=== PATIENT | male | born 1970 | race Caucasian/White ===

== ENCOUNTER 2024-01-04 08:20 | Outpatient (OUT) | payer BC, SELFPAY ==
[2024-01-04 08:43] LABS: Basophils Percent Auto 0.8 % (0.2-2.0); Eosinophils Absolute Auto 0.2 10^3/uL (0.0-0.7); Eosinophils Percent Auto 3.1 % (0.9-7.0); Hematocrit 48.9 % (42.0-54.0); Hemoglobin 15.9 g/dL (14.0-18.0); Immature Granulocytes Abs Auto 0.01 10^3/uL (0.00-0.03); Immature Granulocytes Pct Auto 0.2 % (0.0-0.5); Lymphocytes Absolute Auto 1.9 10^3/uL (1.2-3.8); Lymphocytes Percent Auto 38.4 % (20.5-60.0); Mean Corpuscular HGB Conc 32.5 g/dL (29.9-35.2); Mean Corpuscular Volume 89.2 fL (80.0-94.0); Mean Platelet Volume 9.7 fL (9.5-13.5); Monocytes Absolute Auto 0.5 10^3/uL (0.3-0.8); Monocytes Percent Auto 9.8 % (1.7-12.0); Neutrophils Absolute Auto 2.3 10^3/uL (1.4-6.5); Neutrophils Percent Auto 47.7 % (43.0-75.0); Platelet Count 205 10^3/uL (150-450); Red Blood Count 5.48 10^6/uL (4.70-6.10); White Blood Count 4.9 10^3/uL (4.0-11.0)
[2024-01-04 08:48] LABS: Bilirubin Urine NEGATIVE (NEGATIVE); Blood Urine NEGATIVE (NEGATIVE); Clarity Urine CLEAR (CLEAR); Color Urine YELLOW (YELLOW); Glucose Urine UA NEGATIVE (NEGATIVE); Ketones Urine NEGATIVE (NEGATIVE); Leukocyte Esterase Urine NEGATIVE (NEGATIVE); Nitrite Urine NEGATIVE (NEGATIVE); Protein Urine NEGATIVE (NEG/TRACE); Specific Gravity Urine >=1.030 (1.005-1.025); Urobilinogen Urine 0.2 EU/dL (0.2-1.0); pH Urine 5.5 (5.0-9.0)
[2024-01-04 08:51] LABS: Microalbum Creatinine Ratio Ur 6.9 mg/g (0.0-29.9); Microalbumin Urine Random <1.3 mg/dL (<=30.0)
[2024-01-04 08:53] LABS: Urine Microscopic Indicated NO
[2024-01-04 09:09] LABS: Estimated Average Glucose 108 mg/dL; Glycohemoglobin A1C 5.4 % (4.5-6.2)
[2024-01-04 11:14] LABS: Alanine Aminotransferase 47 U/L (16-63); Albumin Globulin Ratio 1.1; Albumin Level 3.8 g/dL (3.4-5.0); Alkaline Phosphatase 73 U/L (46-116); Aspartate Amino Transferase 29 U/L (15-37); BUN Creatinine Ratio 12.5; Bilirubin Total 0.5 mg/dL (0.2-1.0); Calcium 8.8 mg/dL (8.5-10.1); Carbon Dioxide 27.3 mmol/L (21.0-32.0); Chloride 104 mmol/L (98-107); Chol HDL Ratio 5.8; Cholesterol 146 mg/dL (<=200); Estimated GFR (African America >60 (>=60); Estimated GFR (Non-African Ame >60 (>=60); Globulin 3.6 g/dL; Glucose 122 mg/dL (74-106); HDL Cholesterol 25 mg/dL (40-60); Potassium 4.3 mmol/L (3.5-5.1); Sodium 141 mmol/L (136-145); Total Protein 7.4 g/dL (6.4-8.2)
[2024-01-04 12:26] LABS: Triglycerides 169 mg/dL (<=150); VLDL CHOLESTEROL 33.8 mg/dL
== END 2024-01-04 08:21 | disposition home or self-care (01) ==
LOC: LAB 08:24
PROVIDERS: PCP Nurse Practitioner; Visit Provider Nurse Practitioner
DX: Z12.5 Encounter for screening for malignant neoplasm of prostate (principal); Z78.9 Other specified health status
CPT/HCPCS: 36415; 80053; 80061; 81003; 82043; 82570; 83036; 84153; 85025

== ENCOUNTER 2024-11-07 08:59 | Outpatient (OUT) | payer BC, SELFPAY ==
--- NOTE | 2024-11-07 09:07 | US_ITS ---
The [address] [address] Patient Name: JEN LOPEZ MRN: [id number] date: 1970 Sex: M Assigned Patient Location: Current Patient Location: Accession/Order Number: [id number] Exam Date: 11/07/2024 09:15 Report Date: 11/11/2024 11:43 At the request of: BASILIO CRAMER Procedure: US scrotum EXAMINATION: US scrotum HISTORY: SCROTAL MASS N50.89 COMPARISON: No relevant comparison available. TECHNIQUE: High-resolution sonographic imaging of the scrotum and contents was performed. FINDINGS: RIGHT TESTICLE: [Homogeneous echotexture. No visible mass. Color Doppler flow is present. Spectral Doppler demonstrates normal arterial waveform and flow, 11/5 cm/s (PSV/EDV), and normal venous wave flow averaging 2 cm/s. EPIDIDYMIS: Normal size and echogenicity. OTHER: Small varicocele. LEFT TESTICLE: Homogeneous echotexture. No visible mass. Color Doppler flow is present. Spectral Doppler demonstrates arterial waveform and flow, 4/2 cm/s (PSV/EDV), and normal venous flow averaging 2 cm/s EPIDIDYMIS: Normal size and echogenicity. OTHER: Several cystic structures within left hemiscrotum adjacent the epididymis, largest is 4.1 x 3.8 x 3.7 cm. Small amount of internal debris. Small hydrocele and mild varicocele. US/US scrotum IMPRESSION: 1. Patient's palpable lump within left hemiscrotum corresponds to several adjacent cystic structures favoring spermatoceles rather than loculated hydroceles. Electronically authenticated by: RAYMUNDO MASTERS Date: 11/11/2024 11:43
== END 2024-11-07 09:00 | disposition home or self-care (01) ==
PROVIDERS: PCP Nurse Practitioner; Visit Provider Nurse Practitioner
DX: N50.89 Other specified disorders of the male genital organs (principal)
CPT/HCPCS: 76870

== ENCOUNTER 2025-05-29 08:27 | Outpatient (OUT) | payer BC, SELFPAY ==
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
--- OUTSIDE RECORDS SUMMARY | 2025-05-29 08:31 | XMS_ITS | Encounter Summary ---
Author Organization [facility] Address [address] [place] [address] Care Team Providers Care Edge Baster Name Role Phone Thierno Del Toro MD Primary Care Provider [phone] Darlyn Paul NP Unavailable [phone] Thierno Del Toro MD Primary Care Provider [phone] Darlyn Paul NP Unavailable [phone] Darlyn Paul NP Unavailable [phone] Reason for Visit * Reason Comments Med Refill Encounter Details Date Type Department Care Team (Late st Contact Info) Description 11/18/2023 Refill [facility] [address] [place] [address] Darlyn Paul NP [address] [place] [phone] Social History Tobacco Use Types Packs/Day Years Used Date Smoking Tobacco: Never Assessed Sex and Gender Information Value Date Recorded Sex Assigned at Not on file Legal Sex Male 10:53 PM EDT Gender Identity Not on file Sexual Orientation Not on file documented as of this encounter Miscellaneous Notes * Telephone Encounter - Darlyn Paul NP - 11/18/2023 12:28 PM EST Needs an appt documented in this encounter Plan of Treatment Upcoming Encounters Date Type Department Care Team (Late st Contact Info) Description 09/23/2025 9:20 AM EST Office Visit [facility] [address] [place] [address] Darlyn Paul NP [address] [place] [phone] documented as of this encounter Visit Diagnoses Not on filedocumented in this encounter Care Teams Edge Baster Relationship Specialty Start Date End Date Thierno Del Toro MD PCP - General Family Medicine 04/19/23 01/01/24 Thierno Del Toro MD [address] [place] [phone] PCP - General Family Medicine 01/02/24 Darlyn Paul NP [address] [place] [phone] [facility] Darlyn Paul NP [address] [place] [phone] Referring Physician Nurse Practitioner 04/19/23 Darlyn Paul NP [address] [place] [address] Nurse Practitioner Family Medicine 01/02/24 documented as of this encounter
--- OUTSIDE RECORDS SUMMARY | 2025-05-29 08:31 | XMS_ITS | Clinical Summary ---
Author Organization [facility] Address [address] [place] [address] Care Team Providers Care Private Watchman Name Role Phone Darlyn Paul CONSULTING NURSE Unavailable [phone] Thierno Del Toro MD Primary Care Provider [phone] Darlyn Paul CONSULTING NURSE Unavailable [phone] Allergies No known active allergies Medications MAGNESIUM GLYCINATE PO Take 240 mg by mouth in the morning and 240 mg before bedtime. Active lisinopril 20 MG tabletIndications:P rimary hypertension Take 1 tablet (20 mg) by mouth Daily 90 tablet 1 5 06/22/20 25 Active rosuvastatin (Crestor) 20 MG tabletIndications:M ixed hyperlipidemia Take 1 tablet (20 mg) by mouth at bedtime 90 tablet 1 5 06/22/20 25 Active Active Problems Problem Noted Date Diagnosed Date Colon cancer screening 03/24/2025 Assessment & Plan (03/24/2025 9:28 AM EDT): Colon cancer screening options were discussed with patient, as well as why colon cancer screening is indicated. Options are Colonoscopy: direct visualization, every 10 years (unless indicated more frequently), risks and benefits were discussed Cologuard: every 3 years, risks and benefits were discussed , contraindications were discussed (family hx of colon cancer, colon polyps) Patient has elected to: cologuard Adult wellness visit 03/24/2025 Assessment & Plan (03/24/2025 9:28 AM EDT): Reviewed Ht/Wt/BMI Recommend eye exam yearly Recommend dental exams twice a year Balance work/leisure activities Exercises is recommended most days of the week (appropriate as chronic conditions allow) Follow up yearly and prn Scrotal mass 10/21/2024 Assessment & Plan (10/21/2024 7:09 PM EST): Differentials: hernia, varicocele, hydrocele, or testicular mass Check US scrotom and send to urology pending results Class 1 obesity due to exces s calories without serious comorbidity in adult 09/23/2024 Assessment & Plan (03/24/2025 5:46 AM EDT): Discussed with patient their BMI (actual, verses recommended). We have also discussed lifestyle modifications: attempts to perform physical activity as chronic conditions allow, also to monitor dietary intake: increasing protein/fruits/veggies and lowering carb intake (unless contraindicated). Limit sodas, juices, and sugary drinks. Assessment & Plan (10/21/2024 7:11 AM EST): Discussed with patient their BMI (actual, verses recommended). We have also discussed lifestyle modifications: attempts to perform physical activity as chronic conditions allow, also to monitor dietary intake: increasing protein/fruits/veggies and lowering carb intake (unless contraindicated). Limit sodas, juices, and sugary drinks. Also discussed oral medications that can be utilized for weight loss, as well as surgical options for weight loss. Assessment & Plan (09/23/2024 8:52 AM EST): Discussed with patient their BMI (actual, verses recommended). We have also discussed lifestyle modifications: attempts to perform physical activity as chronic conditions allow, also to monitor dietary intake: increasing protein/fruits/veggies and lowering carb intake (unless contraindicated). Limit sodas, juices, and sugary drinks. Also discussed oral medications that can be utilized for weight loss, as well as surgical options for weight loss. Has gained 9 pounds since 12/2023 Needs flu shot 09/23/2024 Assessment & Plan (09/23/2024 9:05 AM EST): declines Primary hypertension 01/02/2024 Assessment & Plan (03/24/2025 5:46 AM EDT): Please check blood pressure daily and record DASH diet Limit caffeine Take medication as directed Contact office if chest pain, pressure, dizziness, shortness of breath, swelling legs Recommend slow position changes Current med: lisinopril Assessment & Plan (09/23/2024 6:33 AM EST): Please check blood pressure daily and record DASH diet Limit caffeine Take medication as directed Contact office if chest pain, pressure, dizziness, shortness of breath, swelling legs Recommend slow position changes Current med: lisinopril Assessment & Plan (01/02/2024 9:27 AM EDT): Out of meds for a week Restart, no need to change dose Meds refilled Check labs Fu in 6 months Mixed hyperlipidemia 01/02/2024 Assessment & Plan (03/24/2025 5:46 AM EDT): Current medication crestor Check labs yearly and prn dose changes Assessment & Plan (09/23/2024 6:34 AM EST): Current medication crestor Check labs yearly and prn dose changes Assessment & Plan (01/02/2024 9:28 AM EDT): Continue statin, check labs Participant in health and wellness plan 01/02/20 Assessment & Plan (03/24/2025 9:28 AM EDT): Labs ordered Prostate cancer screening 01/02/2024 Overview (01/09/2024): 07/2018 1.44 01/08/24 2.50 Resolved Problems Problem Noted Date Diagnosed Date Resolved Date Elevated glucose level 01/02/202409/23 Assessment & Plan (01/02/2024 9:28 AM EDT): Hx of sl elevation glucose last year, never had A1c test No acute s/s DM, does have grandparent with diabetes Will check A1c test Encounters Date Type Department Care Team Description 03/24/2025 9:00 AM EDT Office Visit [facility] [address] [place] [address] Darlyn Paul NP Adult wellness visit (Primary Dx); Primary hypertension ; Class 1 obesity due to excess calories without serious comorbidity with body mass index (BMI) of 30.0 to 30.9 in adult; Mixed hyperlipidemia ; Participant in health and wellness plan; Colon cancer screening 03/24/2025 Bamboo flowsheet [facility] [address] [place] [address] Darlyn Paul NP 03/23/2025 Travel from Last 3 Months Social History Tobacco Use Types Packs/Day Years Used Date Smoking Tobacco: Former Cigarettes Q uit: 1999 Smokeless Tobacco: Never Tobacco Cessation:Counseling Given: Not Answered Alcohol Use Standard Drinks/Week Comments Not Currently 0 (1 standard drink = 0.6 oz pur e alcohol) caffine: coffee 1 daily B1300 Health Literacy Answer Date Recor ded How often do you need to hav e someone help you when you read instructions, pamphlets, or other written material from your doctor or pharmacy? Never 09/22/2024 Social Connection and Isolat ion Panel [NHANES] Answer Date Recorded In a typical week, how many times do you talk on the phone with family, friends, or neighbors? More than three times a week 09/22/2024 How often do you get togethe r with friends or relatives? Once a week 09/22/2024 How often do you attend chur ch or gnosticism services? 1 to 4 times per year 09/22/2024 Do you belong to any clubs o r organizations such as nondenominational groups, unions, fraternal or athletic groups, or school groups? Yes 09/22/2024 How often do you attend meet ings of the clubs or organizations you belong to? Never 09/22/2024 Are you , , di vorced, , never , or living with a partner? 09/22/2024 AUDIT-C Answer Date Recorded Q1: How often do you have a drink containing alcohol? Monthly or less 09/22/2024 Q2: How many drinks containi ng alcohol do you have on a typical day when you are drinking? Patient does not drink Q3: How often do you have si x or more drinks on one occasion? Never 09/22/2024 Overall Financial Resource Strain (CARDIA) Answe r Date Recorded How hard is it for you to pa y for the very basics like food, housing, medical care, and heating? Not hard at all 09/22/2024 [facility] - Occupational Stress Questionnaire Answer Date Recorded Do you feel stress - tense, restless, nervous, or anxious, or unable to sleep at night because your mind is troubled all the time - these days? Not at all 09/22/2024 Exercise Vital Sign Answer Date Recorde d On average, how many days pe r week do you engage in moderate to strenuous exercise (like a brisk walk)? 3 days 09/22/2024 On average, how many minutes do you engage in exercise at this level? 10 min 09/22/2024 Hunger Vital Sign Answer Date Recorded Within the past 12 months, y ou worried that your food would run out before you got the money to buy more. Never true 09/22/20 24 Within the past 12 months, t he food you bought just didn't last and you didn't have money to get more. Never true 09/22/2024 PRAPARE - Transportation Answer Date Re corded In the past 12 months, has l ack of transportation kept you from medical appointments or from getting medications? No 09/06 In the past 12 months, has l ack of transportation kept you from meetings, work, or from getting things needed for daily living? No 09/22/2024 Housing Stability Vital Sign Answer Sea e Recorded In the last 12 months, was t here a time when you were not able to pay the mortgage or rent on time? No 09/22/2024 In the past 12 months, how m any times have you moved where you were living? 0 09/22/2024 At any time in the past 12 [facility], were you homeless or living in a [facility] (including now)? No 09/22/2024 Sex and Gender Information Value Date Recorded Sex Assigned at Not on file Legal Sex Male 10:53 PM EDT Gender Identity Not on file Sexual Orientation Not on file Last Filed Vital Signs Vital Sign Reading Time Taken Comments Blood Pressure 118/78 03/24/2025 8:59 AM EDT Pulse 72 03/24/2025 8:59 AM EDT Temperature 36.8 C (98.3 F) 03/24/2025 8:59 AM EDT Respiratory Rate 18 03/24/2025 8:59 AM EDT Oxygen Saturation 97% 03/24/2025 8:59 AM EDT Inhaled Oxygen Concentration - - Weight 101 kg (222 lb 3.2 oz) 03/24/2025 8:59 AM EDT Height 175.3 cm (5' 9 ) 10/21/2024 6:25 PM EST Body Mass Index 32.81 10/21/2024 6:25 PM EST Plan of Treatment Upcoming Encounters Date Type Department Care Team (Late st Contact Info) Description 09/23/2025 9:20 AM EST Office Visit [facility] [address] [place] [address] Darlyn Paul, CONSULTING NURSE [address] [place] [phone] Health Maintenance Due Date Last Done Comments CT Colonography 1970 Colonoscopy 1971 FIT 1970 FOBT 1970 Sigmoidoscopy 1970 Colorectal Cancer Screening 10/09/2024 FIT-DNA 10/09/2024 10/09/2021 Influenza Vaccine Discontinued Insurance [employer] Care Teams Private Watchman Relationship Specialty Start Date End Date Thierno Del Toro MD [address] [place] [phone] PCP - General Family Medicine 01/02/24 Darlyn Paul NP [address] [place] [address] Referring Physician Nurse Practitioner 04/19/23 Darlyn Paul NP [address] [place] [address] Nurse Practitioner Family Medicine 01/02/24
--- OUTSIDE RECORDS SUMMARY | 2025-05-29 08:31 | XMS_ITS | CCD ---
Author Organization [facility] Care Team Providers Care Leather Toggler Name Role Phone MARQUEZ PAUL Admitting Unavailable MARQUEZ PAUL Attending Unavailable MARQUEZ PAUL Primary Care Unavailable MARQUEZ PAUL Consulting Unavailable Humberto COMPLIANCE REVIEW SPECIALIST, Darlyn Unavailable Thierno Del Toro MD Primary Care Provider Humberto COMPLIANCE REVIEW SPECIALIST, Darlyn Unavailable Humberto COMPLIANCE REVIEW SPECIALIST, Darlyn Unavailable DARLYN PAUL Primary Care Physician Jayden BECK Attending Unavailable Jayden BECK Attending Unavailable Jayden BECK Attending Unavailable Jayden BECK Admitting Unavailable Jayden BECK Attending Unavailable Jayden BECK Admitting Unavailable Jayden Beck MD Attending Provider Darlyn Paul Primary Care Provider [phone] DARLYN PAUL Attending Unavailable DARLYN PAUL Attending Unavailable DARLYN PAUL Attending Unavailable Darlyn Paul Primary Care Unavailable Jayden Beck Attending Unavailable Jayden Beck Admitting Unavailable Allergies Allergy Classification Reported Allergen(s) Allergy Type Date of Onset Reaction(s) Facility (1 source) No Known Medication Allergies; Translations: [No Known Medication Allergies] Propensity to adverse reactions (disorder) [facility] Repository Medications Current Medications Medication Drug Class(es) Dates Sig (Normalized) Sig (Original) lisinopril 20 mg oral tablet (20 sources) Angiotensin Converting Enzyme Inhibitor Start: 01-09-2024 End: 09-16-2025 take 1 tablet by mouth once daily lisinopril 20 MG tablet Indications: Primary hypertension Take 1 tablet (20 mg) by mouth Daily 90 tablet 1 03/24/2025 06/22/2025 Active Magnesium glycinate (11 sources) take 240 mg by mouth in the morning MAGNESIUM GLYCINATE PO Take 240 mg by mouth in the morning and 240 mg before bedtime. Active rosuvastatin calcium 20 mg oral tablet (20 sources) HMG-CoA Reductase Inhibitor Start: 01-09-2024 End: 06-22-2025 take 1 tablet by mouth at bedtime rosuvastatin (Crestor) 20 MG tablet Indications: Mixed hyperlipidemia Take 1 tablet (20 mg) by mouth at bedtime 90 tablet 1 03/24/2025 06/22/2025 Active Problems Active Problems Problem Classification Problem Date Documented Date Episodic/Chronic Disorders of lipid metabolism (19 sources) Mixed hyperlipidemia; Translations: [Mixed hyperlipidemia] Onset: 01-02-2024 06-19-2024 Chronic Essential hypertension (19 sources) Essential hypertension; Translations: [Essential (primary) hypertension] Onset: 01-02-2024 06-19-2024 Chronic Other male genital disorders (1 source) Spermatocele 01-11-2025 Episodic Other nutritional; endocrine; and metabolic disorders (18 sources) Obesity caused by energy imbalance; Translations: [Class 1 obesity due to excess calories without serious comorbidity in adult] Onset: 09-23-2024 09-23-2024 Chronic Other screening for suspected conditions (not mental disorders or infectious disease) (19 sources) Patient encounter status; Translations: [Encounter for screening for malignant neoplasm of prostate] Onset: 01-02-2024 01-09-2024 Episodic Residual codes; unclassified (1 source) Other specified health status; Translations: [OTHER SPECIFIED HEALTH STATUS] Onset: 11-12-2022 Episodic Residual codes; unclassified (15 sources) Patient participation status; Translations: [Other specified health status] Onset: 01-02-2024 01-02-2024 Episodic Past or Other Problems Problem Classification Problem Date Documented Da te Episodic/Chronic Diabetes mellitus without complication (17 sources) Hyperglycemia, unspecified; Translations: [Increased glucose level] Onset: 11-10-2022 Resolved: 09-23-2024 Episodic Immunizations and screening for infectious disease (9 sources) Needs influenza immunization; Translations: [Encounter for immunization] Onset: 09-23-2024 09-23-2024 Episodic Other male genital disorders (12 sources) Scrotal mass; Translations: [Other specified disorders of the male genital organs] Onset: 10-21-2024 10-21-2024 Episodic Results Test Name Value Interpretation Reference Range Facility MR prostate wo/w conon 03-16 MR prostate wo/w con [facility] [place] [address] [place] [address] MRI Report Signed Patient: Jen Lopez MR#: [id number] : 1970 Acct:[id number] Age/Sex: 54 / M ADM Date: 03/15/25 Loc: MR Room: Type: [facility] Attending Dr: Jayden Beck MD Copies to: Jayden Beck MD Ordering Provider: Jayden Beck MD Date of Service: 03/15/25 MR/MR prostate wo/w con: r97.20 EXAMINATION: MR prostate wo/w con HISTORY: Elevated PSA COMPARISON: NONE TECHNIQUE: Multiparametric imaging of the prostate gland was performed with IV contrast. FINDINGS: Prostate Dimensions: 5.0 x 3.9 x 5.3 cm Prostate Volume: 54 mL Peripheral Zone: Heterogenous inT2 signal suggestive of prior prostatitis. No suspicious T2 or ADC map abnormality is identified to suggest prostate malignancy. Central/Transitional Zone: BPH changes. Seminal Vesicles: Unremarkable Neurovascular bundles: Unremarkable. Lymphadenopathy: No evidence of lymphadenopathy. Bladder: No focal lesion. Bowel: The visualized bowel is without acute abnormality. Peritoneal Cavity: No free fluid. Partially visualized right-sided fat filled inguinal hernia. Bones: No suspicious bony lesion. MR/MR prostate wo/w con IMPRESSION: No MRI evidence of clinically significant prostate cancer. BPH changes. Impression dictated by: Festus Mendoza Jr., D.O. 03/16/2025 9:36 AM Dictation Location: [place] [address] Transcribed By: [facility] 03/16/2536 Dictated By: Festus Mendoza Jr, DO 03/16/25 0932 Signed By: 03/16/2536 Normal [facility] Ambulatory Visit Summaryon 0 01-11-2025 Ambulatory Visit Summary Ambulatory Visit Summary JEN LOPEZ :1970 Visit Date:01/11/2025 Ambulatory Visit Instructions Your Diagnosis Spermatocele Elevated PSA Your Care Team Attending Physician - Jayden BECK MD Primary Care Physician - DARLYN PAUL CNP This Is Your Medications List Contact prescribing physician if questions or concerns lisinopril (lisinopril 20 mg Tab) rosuvastatin (rosuvastatin 20 mg Tab) Procedures Performed Vasectomy. Discharge Vitals Temperature (Temporal Artery) 37 ???C Heart Rate (Peripheral) 88 Respiratory Rate 16 Blood Pressure 138/81 Height 174 cm Height 69 in Weight 100 kg Weight 220.462 lb BMI 33.03 What to do next Scheduled Follow-Up Appointments Saturday2025 9:45 AM EDT With: Jayden BECK MD Where: [facility] [place] [address] [place] [address] You Need to Schedule the Following Appointments Follow Up with Jayden BECK MD, URL When: Comments: 1 yr w/ PSA Where: [facility] [address], [place] [address]- [phone] You Need to Complete the Following PSA Total, Blood, Routine collect, 01/11/25, Order for future visit, Lab Collect, Elevated PSA, Print Label By Order Location Medications What How Much When Instructions Unchanged lisinopril (lisinopril 20 mg Tab) 1 Tablets Contact prescribing physician if questions or concerns Unchanged rosuvastatin (rosuvastatin 20 mg Tab) 1 Tablets Contact prescribing physician if questions or concerns Allergies No Known Medication Allergies Problems Ongoing - Any problem that you are currently receiving treatment for. Elevated PSA Spermatocele Patient Survey You may receive a survey via text or e-mail asking about your office visit. Please share your experience with us by completing your survey. We appreciate your feedback and thank you for choosing us for your care. Education Materials Testicular Self-Exam A self-examination of your testicles (testicular self-exam) involves looking at and feeling your testicles for abnormal lumps or swelling. Several things can cause swelling, lumps, or pain in your testicles, including: ??? Injuries. ??? Inflammation. ??? Infection. ??? Buildup of fluids around the testicle (hydrocele). ??? Twisted testicles (testicular torsion). ??? Testicular cancer. You may be at risk for this if you have: ? A testicle that has not descended. ? Previously had testicular cancer. ? A family history of testicular cancer. General tips ??? It is easiest to do a self-exam during or after a warm bath or shower. Testicles are harder to examine when you are cold because the muscles attached to the testicles retract and pull them up higher or into the abdomen. ??? A normal testicle is egg-shaped and feels firm. It is smooth and not tender. ??? It is normal to feel a firm, spaghetti-like cord at the back of your testicle. This is the spermatic cord. ??? Do a self-exam once a month. How to do a testicular self-exam 1. Stand and hold your penis away from your body. 2. Look at each testicle to check for changes in appearance, such as swelling or changes in size or shape. 3. Roll each testicle between your thumb and forefinger, feeling the entire testicle. Feel for: ??? Lumps. ??? Swelling. ??? Discomfort. 4. Check for swelling or tender bumps in the groin area. Your groin is where your lower belly (abdomen) meets your upper thighs. Contact a health care provider if: ??? You find a bump or lump. This may be a small, hard bump that is the size of a pea. ??? You have swelling, pain, or soreness in your testicle area. ??? You see or feel any other changes in your testicles. This information is not intended to replace advice given to you by your health care provider. Make sure you discuss any questions you have with your health care provider. Document Revised: 07/08/2023 Document Reviewed: 07/08/2023 Elsevier Patient Education ??? 2023 [employer] Spermatocele A spermatocele is a fluid-filled sac (cyst) inside the sac that holds the testicles (scrotum). This type of cyst often forms in the epididymis. The epididymis is a coiled tube at the top of each testicle, and this tube is where sperm are stored. The cyst sometimes forms along a tube called the vas deferens, which is a tube that carries sperm away from the epididymis. Spermatoceles are usually painless. Most cysts are small, but they can grow larger. Spermatoceles are not cancerous (are benign). What are the causes? The cause of this condition is not known. However, this condition usually results from a blockage in one of the many small tubes (tubules) that carry sperm from your testicle to your vas deferens. What are the signs or symptoms? In most cases, small (more content not included)... Normal [facility] Ambulatory Visit Summary Ambulatory Visit Summary JEN LOPEZ :1970 Visit Date:01/11/2025 Ambulatory Visit Instructions Your Diagnosis Spermatocele Elevated PSA Your Care Team Attending Physician - RHONDA PEDRO, Jayden Matos Primary Care Physician - DARLYN PAUL CNP This Is Your Medications List Contact prescribing physician if questions or concerns lisinopril (lisinopril 20 mg Tab) rosuvastatin (rosuvastatin 20 mg Tab) Procedures Performed Vasectomy. Discharge Vitals Temperature (Temporal Artery) 37 ???C Heart Rate (Peripheral) 88 Respiratory Rate 16 Blood Pressure 138/81 Height 174 cm Height 69 in Weight 100 kg Weight 220.462 lb BMI 33.03 What to do next You Need to Schedule the Following Appointments Follow Up with RHONDA PEDRO, Jayden Matso, URL When: Comments: 1 yr w/ PSA Where: [facility] [address] [place] [address]- [phone] You Need to Complete the Following PSA Total, Blood, Routine collect, 01/11/25, Order for future visit, Lab Collect, Elevated PSA, Print Label By Order Location Medications What How Much When Instructions Unchanged lisinopril (lisinopril 20 mg Tab) 1 Tablets Contact prescribing physician if questions or concerns Unchanged rosuvastatin (rosuvastatin 20 mg Tab) 1 Tablets Contact prescribing physician if questions or concerns Allergies No Known Medication Allergies Problems Ongoing - Any problem that you are currently receiving treatment for. Elevated PSA Spermatocele Patient Survey You may receive a survey via text or e-mail asking about your office visit. Please share your experience with us by completing your survey. We appreciate your feedback and thank you for choosing us for your care. Education Materials Testicular Self-Exam A self-examination of your testicles (testicular self-exam) involves looking at and feeling your testicles for abnormal lumps or swelling. Several things can cause swelling, lumps, or pain in your testicles, including: ??? Injuries. ??? Inflammation. ??? Infection. ??? Buildup of fluids around the testicle (hydrocele). ??? Twisted testicles (testicular torsion). ??? Testicular cancer. You may be at risk for this if you have: ? A testicle that has not descended. ? Previously had testicular cancer. ? A family history of testicular cancer. General tips ??? It is easiest to do a self-exam during or after a warm bath or shower. Testicles are harder to examine when you are cold because the muscles attached to the testicles retract and pull them up higher or into the abdomen. ??? A normal testicle is egg-shaped and feels firm. It is smooth and not tender. ??? It is normal to feel a firm, spaghetti-like cord at the back of your testicle. This is the spermatic cord. ??? Do a self-exam once a month. How to do a testicular self-exam 1. Stand and hold your penis away from your body. 2. Look at each testicle to check for changes in appearance, such as swelling or changes in size or shape. 3. Roll each testicle between your thumb and forefinger, feeling the entire testicle. Feel for: ??? Lumps. ??? Swelling. ??? Discomfort. 4. Check for swelling or tender bumps in the groin area. Your groin is where your lower belly (abdomen) meets your upper thighs. Contact a health care provider if: ??? You find a bump or lump. This may be a small, hard bump that is the size of a pea. ??? You have swelling, pain, or soreness in your testicle area. ??? You see or feel any other changes in your testicles. This information is not intended to replace advice given to you by your health care provider. Make sure you discuss any questions you have with your health care provider. Document Revised: 07/08/2023 Document Reviewed: 07/08/2023 Elsevier Patient Education ??? 2023 [employer]. Spermatocele A spermatocele is a fluid-filled sac (cyst) inside the sac that holds the testicles (scrotum). This type of cyst often forms in the epididymis. The epididymis is a coiled tube at the top of each testicle, and this tube is where sperm are stored. The cyst sometimes forms along a tube called the vas deferens, which is a tube that carries sperm away from the epididymis. Spermatoceles are usually painless. Most cysts are small, but they can grow larger. Spermatoceles are not cancerous (are benign). What are the causes? The cause of this condition is not known. However, this condition usually results from a blockage in one of the many small tubes (tubules) that carry sperm from your testicle to your vas deferens. What are the signs or symptoms? In most cases, small cysts do not cause symptoms. However, symptoms sometimes occur. Symptoms of this condition include: ??? Dull pain. ??? A feeling of heaviness. ??? An enlarged scrotum, if your cyst is large. How is this diagnosed (more content not included)... Normal [facility] Ambulatory Visit Summary Ambulatory Visit Summary JEN LOPEZ :1970 Visit Date:01/11/2025 Ambulatory Visit Instructions Your Diagnosis Spermatocele Elevated PSA Your Care Team Attending Physician - Jayden BECK MD Primary Care Physician - DARLYN PAUL CNP This Is Your Medications List Contact prescribing physician if questions or concerns lisinopril (lisinopril 20 mg Tab) rosuvastatin (rosuvastatin 20 mg Tab) Procedures Performed Vasectomy. Discharge Vitals Temperature (Temporal Artery) 37 ???C Heart Rate (Peripheral) 88 Respiratory Rate 16 Blood Pressure 138/81 Height 174 cm Height 69 in Weight 100 kg Weight 220.462 lb BMI 33.03 What to do next You Need to Schedule the Following Appointments Follow Up with RHONDA PEDRO, Jayden Matos, RASHMI When: Comments: 1 yr w/ PSA Where: [facility] [address] , [place] [address]- [phone] You Need to Complete the Following PSA Total, Blood, Routine collect, 01/11/25, Order for future visit, Lab Collect, Elevated PSA, Print Label By Order Location Medications What How Much When Instructions Unchanged lisinopril (lisinopril 20 mg Tab) 1 Tablets Contact prescribing physician if questions or concerns Unchanged rosuvastatin (rosuvastatin 20 mg Tab) 1 Tablets Contact prescribing physician if questions or concerns Allergies No Known Medication Allergies Problems Ongoing - Any problem that you are currently receiving treatment for. Elevated PSA Spermatocele Patient Survey You may receive a survey via text or e-mail asking about your office visit. Please share your experience with us by completing your survey. We appreciate your feedback and thank you for choosing us for your care. Education Materials Testicular Self-Exam A self-examination of your testicles (testicular self-exam) involves looking at and feeling your testicles for abnormal lumps or swelling. Several things can cause swelling, lumps, or pain in your testicles, including: ??? Injuries. ??? Inflammation. ??? Infection. ??? Buildup of fluids around the testicle (hydrocele). ??? Twisted testicles (testicular torsion). ??? Testicular cancer. You may be at risk for this if you have: ? A testicle that has not descended. ? Previously had testicular cancer. ? A family history of testicular cancer. General tips ??? It is easiest to do a self-exam during or after a warm bath or shower. Testicles are harder to examine when you are cold because the muscles attached to the testicles retract and pull them up higher or into the abdomen. ??? A normal testicle is egg-shaped and feels firm. It is smooth and not tender. ??? It is normal to feel a firm, spaghetti-like cord at the back of your testicle. This is the spermatic cord. ??? Do a self-exam once a month. How to do a testicular self-exam 1. Stand and hold your penis away from your body. 2. Look at each testicle to check for changes in appearance, such as swelling or changes in size or shape. 3. Roll each testicle between your thumb and forefinger, feeling the entire testicle. Feel for: ??? Lumps. ??? Swelling. ??? Discomfort. 4. Check for swelling or tender bumps in the groin area. Your groin is where your lower belly (abdomen) meets your upper thighs. Contact a health care provider if: ??? You find a bump or lump. This may be a small, hard bump that is the size of a pea. ??? You have swelling, pain, or soreness in your testicle area. ??? You see or feel any other changes in your testicles. This information is not intended to replace advice given to you by your health care provider. Make sure you discuss any questions you have with your health care provider. Document Revised: 07/08/2023 Document Reviewed: 07/08/2023 [employer] Patient Education ??? 2023 [employer]. Spermatocele A spermatocele is a fluid-filled sac (cyst) inside the sac that holds the testicles (scrotum). This type of cyst often forms in the epididymis. The epididymis is a coiled tube at the top of each testicle, and this tube is where sperm are stored. The cyst sometimes forms along a tube called the vas deferens, which is a tube that carries sperm away from the epididymis. Spermatoceles are usually painless. Most cysts are small, but they can grow larger. Spermatoceles are not cancerous (are benign). What are the causes? The cause of this condition is not known. However, this condition usually results from a blockage in one of the many small tubes (tubules) that carry sperm from your testicle to your vas deferens. What are the signs or symptoms? In most cases, small cysts do not cause symptoms. However, symptoms sometimes occur. Symptoms of this condition include: ??? Dull pain. ??? A feeling of heaviness. ??? An enlarged scrotum, if your cyst is large. How is this diagnosed (more content not included)... Normal [facility] CHEMISTRYOrdered By: SYSTEM SYSTEM on 01-11-2025 Prostate specific Ag [Mass/Vol] 2.5 ng/mL Normal 0.1 - 3.5 ng/mL Remisol Chem Comment on above: Interpretive Data: T he concentration of PSA determined by different manufacturers can vary due to differences in assay methods and reagent specificity. Values obtained from different assay methods cannot be used interchangeably. The methodology used for this result was chemiluminescence using [employer]'s [employer] Hybritech PSA reagent. PSA Totalon 01-11-2025 Prostate specific Ag [Mass/Vol] 2.5 ng/mL Normal 0.1-3.5 [facility] Comment on above: Result Comment: The concentration of PSA determined by different manufacturers can vary due to differences in assay methods and reagent specificity. Values obtained from different assay methods cannot be used interchangeably. The methodology used for this result was chemiluminescence using [employer]'s [employer] Hybritech PSA reagent. Performed By: #### 1 [id number] #### [facility] [address] [place] [address] Urology Office/Clinic Noteon 01-11-2025 Urology Office/Clinic Note Urology Office/Clinic Note Chief Complaint scrotal mass HPI Staff New pt referred by Darlyn Paul NP for scrotal mass. PSA 01/04/24 - 2.5 Scrotal US 11/11/24 [facility]. Denies any urinary complaints at this time. Denies any visible blood at any time. No pain of any kind. Pt states he first noticed the mass shortly before his appointment with FALLON Paul. No pain, swelling, redness or heat to the area. States that the mass does not seem to more one sided than the other. Almost free floating. History of Present Illness Tests reviewed: reviewed UA, referral records I have reviewed the previous health record information and history for this patient from external providers. I have reviewed and verified the staff HPI to be accurate for this encounter. Review of Systems PHQ Score Initial Depression Screen Score: 0 SCORE ROS - Provider Constitutional: denies weight loss, denies hot flashes. Eyes: denies eye problems. Gastrointestinal: denies nausea, denies vomiting. Cardiovascular: denies chest pain or angina. Integumentary: no dryness Musculoskeletal: denies musculoskeletal symptoms. ENMT: denies otolaryngeal symptoms. Respiratory: no shortness of breath. Heme/Lymph: denies easy bleeding tendency, denies easy bruising tendency. Psychiatric: no confusion, no anxiety. Genitourinary: See HPI. Physical Exam Vitals & Measurements T: 37 ???C(Temporal Artery) HR: 88(Peripheral) RR: 16 BP: 138/81 HT: 174 cm HT: 69 in WT: 220.462 lb WT: 100 kg BMI: 33.03 General Appearance: alert, no distress, well nourished, well developed male. Head: normocephalic . Eyes: normal orbit and globe. ENMT: normal examination of external ears. Chest: Lungs CTA, respirations non labored. Cardiovascular: regular rate and rhythm. Abdomen: soft, non distended, no tenderness, no mass or organomegaly, no hernia. Genitourinary: normal scrotum, normal testes, normal urethra, abnormal epididymis with left spermatocele about the size of the testicle, normal vas deferens/spermatic cord. Flank Pain: none. Bladder: nonpalpable. Penis: normal shaft, normal glans. Lymph Nodes: unremarkable palpation of the cervical area. Skin: warm, dry, no bruising. Psychiatric: cooperative, affect appropriate for age, normal judgement, euthymic mood. Assessment/Plan Jen is a 54 yo male new pt referred by Dralyn Paul NP for scrotal mass. IPSS 2. 1. Spermatocele (N43.40: Spermatocele of epididymis, unspecified) Scrotal US 11/11/24 [facility] - Several cystic structures within L hemiscrotum protruding from the epididymis, largest 4.1 x 3.8 x 3.7 cm. Small amount of internal debris. Small hydrocele and mild varicocele. Shares he found a mass in his scrotum upon self-examination in the last few months. Denies pain to palpation. Reviewed imaging results. Advised pt no repair is required unless there is an increase in size and becomes more bothersome. -Cont regular self-exams 2. Elevated PSA (R97.20: Elevated prostate specific antigen [PSA]) PSA 01/04/24 - 2.5 Advised pt level is elevated for his age. Recommend repeating this now. -PSA to be drawn IO today. Will call pt w results. -F/u in 1 yr w/ PSA (pending today's results, may need sooner appt) Follow-up With When Contact Information RHONDA PEDRO, Jayden Matos, [facility] [address], [place] [address] [phone] Additional Instructions: 1 yr w/ PSA Patient Education Testicular Self-Exam Spermatocele I, Ling Card, personally scribed for Dr. Beck on 01/11/2025 11:12:18. . Documentation recorded by the scribe, Ling Card, accurately reflects the services(s) I performed and decisions made by me. Authenticated by Dr. Beck on 01/11/2025 11:16:03. Problem List/Past Medical History Ongoing Elevated PSA Spermatocele Historical No qualifying data Procedure/Surgical History Vasectomy. Medications lisinopril 20 mg Tab, 20 mg= 1 tab(s) rosuvastatin 20 mg Tab, 20 mg= 1 tab(s) Allergies No Known Medication Allergies Social History Alcohol Never., 01/08/2025 Substance Abuse Never., 01/08/2025 Tobacco Former smoker, quit more than 30 days ago, quit 24 years ago Tobacco Use:. Never Smokeless Tobacco Use:. Cigarettes, Household tobacco concerns: No. Yes, 01/11/2025 Family History High cholesterol: Father. Hypertension: Father. Lab Results Ambulatory Point of Care Results Bilirubin Urine Dipstick: Negative (01/11/25 10:20:00) Blood Urine Dipstick: Negative (01/11/25 10:20:00) Glucose Urine Dipstick: Trace 100 mg/dl (01/11/25 10:20:00) Ketones Urine Dipstick: Trace - 5 mg/dl (01/11/25 10:20:00) Leukocytes Urine Dipstick: Negative (01/11/25 10:20:00) Nitrite Urine Dipstick: Negative (01/11/25 10:20:00) Protein Urine Dipstick: Negative (01/11/25 10:20:00) Specific Jonancy Urine Dipstick: 1.025 (01/11/25 10:20:00) Urine Appearance Urine Dipstick: Clear (01/11/25 10:20:00) Urine (more content not included)... Normal [facility] Comment on above: Result Comment: Elec tronically Signed By: Jayden BECK MD\.br\Date and Time Signed: 01/11/25 11:16 EDT\.br\Electronically Co-Signed By: Ling Cardbr\Date and Time Co-Signed: 01/11/25 11:12 EDT US Scrotum and testicleon [address] [place] [address] Ultrasound Report Signed Patient: JEN LOPEZ MR#: [id number] : 1970 Acct:[id number] Age/Sex: 53 / M ADM Date: 11/07/24 Loc: US Attending Dr: Darlyn Paul NP Ordering Physician: Darlyn Paul NP Date of Service: 11/07/24 Procedure(s): US scrotum Accession Number(s): [id number] cc: Darlyn Paul NP [place] [id number] Patient Name: JEN LOPEZ MRN: [id number] date: 1970 Sex: M Assigned Patient Location: US Current Patient Location: Accession/Order Number: [id number] Exam Date: 11/07/2024 09:15 Report Date: 11/11/2024 11:43 At the request of: DARLYN PAUL Procedure: US scrotum EXAMINATION: US scrotum HISTORY: SCROTAL MASS N50.89 COMPARISON: No relevant comparison available. TECHNIQUE: High-resolution sonographic imaging of the scrotum and contents was performed. FINDINGS: RIGHT TESTICLE: [Homogeneous echotexture. No visible mass. Color Doppler flow is present. Spectral Doppler demonstrates normal arterial waveform and flow, 11/5 cm/s (PSV/EDV), and normal venous wave flow averaging 2 cm/s. EPIDIDYMIS: Normal size and echogenicity. OTHER: Small varicocele. LEFT TESTICLE: Homogeneous echotexture. No visible mass. Color Doppler flow is present. Spectral Doppler demonstrates arterial waveform and flow, 4/2 cm/s (PSV/EDV), and normal venous flow averaging 2 cm/s EPIDIDYMIS: Normal size and echogenicity. OTHER: Several cystic structures within left hemiscrotum adjacent the epididymis, largest is 4.1 x 3.8 x 3.7 cm. Small amount of internal debris. Small hydrocele and mild varicocele. US/US scrotum IMPRESSION: 1. Patient's palpable lump within left hemiscrotum corresponds to several adjacent cystic structures favoring spermatoceles rather than loculated hydroceles. Electronically authenticated by: ELLIOT BROWN Date: 11/11/2024 11:43 Dictated By: Elliot Brown M.D. Signed By: 11/11/24 1145 DD/ 1143 TD/TT: Mechanic Chief: [facility] Radiology, Radiologist, - 11/11/2024 [place] [address] Ultrasound Report Signed Patient: JEN LOPEZ MR#: [id number] : 1970 Acct:[id number] Age/Sex: 53 / M ADM Date: 11/07/24 Loc: US Attending Dr: Darlyn Paul NP Ordering Physician: Darlyn Paul NP Date of Service: 11/07/24 Procedure(s): US scrotum Accession Number(s): [id number] cc: Darlyn Paul NP [place] [id number] Patient Name: JEN LOPEZ MRN: [facility]:[id number] date: 1970 Sex: M Assigned Patient Location: US Current Patient Location: Accession/Order Number: [id number] Exam Date: 11/07/2024 09:15 Report Date: 11/11/2024 11:43 At the request of: DARLYN PAUL Procedure: US scrotum EXAMINATION: US scrotum HISTORY: SCROTAL MASS N50.89 COMPARISON: No relevant comparison available. TECHNIQUE: High-resolution sonographic imaging of the scrotum and contents was performed. FINDINGS: RIGHT TESTICLE: [Homogeneous echotexture. No visible mass. Color Doppler flow is present. Spectral Doppler demonstrates normal arterial waveform and flow, 11/5 cm/s (PSV/EDV), and normal venous wave flow averaging 2 cm/s. EPIDIDYMIS: Normal size and echogenicity. OTHER: Small varicocele. LEFT TESTICLE: Homogeneous echotexture. No visible mass. Color Doppler flow is present. Spectral Doppler demonstrates arterial waveform and flow, 4/2 cm/s (PSV/EDV), and normal venous flow averaging 2 cm/s EPIDIDYMIS: Normal size and echogenicity. OTHER: Several cystic structures within left hemiscrotum adjacent the epididymis, largest is 4.1 x 3.8 x 3.7 cm. Small amount of internal debris. Small hydrocele and mild varicocele. US/US scrotum IMPRESSION: 1. Patient's palpable lump within left hemiscrotum corresponds to several adjacent cystic structures favoring spermatoceles rather than loculated hydroceles. Electronically authenticated by: ELLIOT BROWN Date: 11/11/2024 11:43 Dictated By: Elliot Brown M.D. Signed By: 11/11/24 1145 DD/ 1143 TD/TT: Mechanic Chief: [facility] Radiology Study observation (narrative) [facility] US Scrotum and testicleOrder ed By: Radiologist Radiology on 11-11-2024 [facility] Work Phone: CBC AUTO DIFFon 11-10-2022 BASO # 0.0 103/ul Normal 0.0-0.1 [facility] Comment on above: Performed By: #### C BC #### [facility] [address] [place] [address] Dr. Bertha Duran Basophils/100 WBC (Bld) 0.7 % Normal 0.2-2.0 [facility] Comment on above: Performed By: #### C BC #### [facility] [address] [place] [address] Dr. Bertha Duran EO # 0.1 103/ul Normal 0.0-0.7 [facility] Comment on above: Performed By: #### C BC #### [facility] [address] [place] [address] Dr. Bertha Duran Eosinophils/100 WBC (Bld) 1.7 % Normal 0.9-7.0 [facility] Comment on above: Performed By: #### C BC #### [facility] [address] [place] [address] Dr. Bertha Duran Erythrocyte distribution width (RBC) [Ratio] 12.1 % Normal 11.0-15.0 [facility] Comment on above: Performed By: #### C BC #### [facility] [address] [place] [address] Dr. Bertha Duran Hematocrit (Bld) [Volume fraction] 51.0 % Normal 42.0-54.0 [facility] Comment on above: Performed By: #### C BC #### [facility] [address] [place] [address] Dr. Bertha Duran Hemoglobin (Bld) [Mass/Vol] 16.2 g/dL Normal 14.0-18.0 [facility] Comment on above: Performed By: #### C BC #### [facility] [address] [place] [address] Dr. Bertha Duran IG # 0.02 10e3/ul Normal 0.00-0.03 [facility] Comment on above: Performed By: #### C BC #### [facility] [address] [place] [address] Dr. Bertha Duran IG % 0.3 % Normal 0.0-0.5 [facility] Comment on above: Performed By: #### C BC #### [facility] [address] [place] [address] Dr. Bertha Duran LYMPH # 2.0 103/ul Normal 1.2-3.8 [facility] Comment on above: Performed By: #### C BC #### [facility] [address] [place] [address] Dr. Bertha Duran Lymphocytes/100 WBC (Bld) 34.5 % Normal 20.5-60.0 [facility] Comment on above: Performed By: #### C BC #### [facility] [address] [place] [address] Dr. Bertha Duran MANUAL DIFF REQ NO Normal [facility] Comment on above: Performed By: #### C BC #### [facility] [address] [place] [address] Dr. Bertha Duran MCH (RBC) [Entitic mass] 28.5 pg Normal 25.9-34.0 [facility] Comment on above: Performed By: #### C BC #### [facility] [address] [place] [address] Dr. Bertha Duran MCHC (RBC) [Mass/Vol] 31.8 g/dL Normal 29.9-35.2 [facility] Comment on above: Performed By: #### C BC #### [facility] [address] [address] [address] Bertha Duran MCV (RBC) [Entitic vol] 89.8 fL Normal 80.0-94.0 [facility] Comment on above: Performed By: #### C BC #### [facility] [address] [place] [address] Dr. Bertha Duran MONO # 0.4 103/ul Normal 0.3-0.8 [facility] Comment on above: Performed By: #### C BC #### [facility] [address] [place] [address] Dr. Bertha Duran Monocytes/100 WBC (Bld) 6.3 % Normal 1.7-12.0 [facility] Comment on above: Performed By: #### C BC #### [facility] [address] [place] [address] Dr. Bertha Duran NEUT # 3.4 103/ul Normal 1.4-6.5 [facility] Comment on above: Performed By: #### C BC #### [facility] [address] [place] [address] Dr. Bertha Duran Neutrophils/100 WBC (Bld) 56.5 % Normal 43.0-75.0 [facility] Comment on above: Performed By: #### C BC #### [facility] [address] [place] [address] Dr. Bertha Duran Platelet mean volume (Bld) [Entitic vol] 10.2 fL Normal 9.5-13.5 [facility] Comment on above: Performed By: #### C BC #### [facility] [address] [place] [address] Dr. Bertha Duran PLT 215 103/ul Normal 150-450 [facility] Comment on above: Performed By: #### C BC #### [facility] [address] [place] [address] Dr. Bertha Duran RBC 5.68 106/ul Normal 4.70-6.10 [facility] Comment on above: Performed By: #### C BC #### [facility] [address] [place] [address] Dr. Bertha Duran WBC 5.9 103/ul Normal 4.0-11.0 [facility] Comment on above: Performed By: #### C BC #### [facility] [address] [place] [address] Dr. Bertha Duran LIPID PROFILEon 11-10-2022 CHOL-HDL RATIO NORM SEE BELOW Normal [facility] Comment on above: Result Comment: 3.3 - 4.4 LOW RISK 4.4 - 7.1 AVERAGE RISK 7.1 - 11.0 MODERATE RISK >11.0 HIGH RISK Performed By: #### C MP, LIPID #### [facility] [address] [place] [address] Dr. Bertha Duran Cholesterol [Mass/Vol] 120 mg/dL Normal <=200 [facility] Comment on above: Performed By: #### C MP, LIPID #### [facility] [address] [place] [address] Dr. Bertha Duran Cholesterol in HDL [Mass/Vol] 22 mg/dL Critically low 40-60 [facility] Comment on above: Performed By: #### C MP, LIPID #### [facility] [address] [place] [address] Dr. Bertha Duran Cholesterol in LDL [Mass/Vol] 67.4 mg/dL Normal [facility] Comment on above: Performed By: #### C MP, LIPID #### [facility] [address] [place] [address] Dr. Bertha Duran Cholesterol.total/Chol esterol in HDL [Mass ratio] 5.5 {ratio} Normal [facility] Comment on above: Performed By: #### C MP, LIPID #### [facility] [address] [place] [address] Dr. Bertha Duran HDL NORMAL > or = 60 mg/dl - LO W CARDIOVASCULAR RISK <40 mg/dl - HIGH CARDIOVASCULAR RISK Normal [facility] Comment on above: Performed By: #### C MP, LIPID #### [facility] [address] [place] [address] Dr. Bertha Duran LDL CALC NORMAL SEE BELOW Normal [facility] Comment on above: Result Comment: <100 mg/dl OPTIMAL 100 - 129 mg/dl NEAR OR ABOVE OPTIMAL 130 - 159 mg/dl BORDERLINE HIGH 160 - 189 mg/dl HIGH >190 mg/dl VERY HIGH Performed By: #### C MP, LIPID #### [facility] [address] [place] [address] Dr. Bertha Duran Triglyceride [Mass/Vol] 153 mg/dL Critically high <=150 [facility] Comment on above: Performed By: #### C MP, LIPID #### [facility] [address] [place] [address] Dr. Bertha Duran VLDL CALC 30.6 mg/dL Normal [facility] Comment on above: Performed By: #### C MP, LIPID #### [facility] [address] [place] [address] Dr. Bertha Duran PROF 14(COMP METB)on 023 Albumin [Mass/Vol] 4.4 g/dL Normal 3.4-5.0 [facility] Comment on above: Performed By: #### C MP, LIPID #### [facility] [address] [place] [address] Dr. Bertha Duran Albumin/Globulin [Mass ratio] 1.3 {ratio} Normal [facility] Comment on above: Performed By: #### C MP, LIPID #### [facility] [address] [place] [address] Dr. Bertha Duran ALP [Catalytic activity/Vol] 72 U/L Normal 46-116 [facility] Comment on above: Performed By: #### C MP, LIPID #### [facility] [address] [place] [address] Dr. Bertha Duran ALT [Catalytic activity/Vol] 59 U/L Normal 16-63 [facility] Comment on above: Performed By: #### C MP, LIPID #### [facility] [address] [place] [address] Dr. Bertha Duran Anion gap [Moles/Vol] 12.3 mmol/L Normal Th [facility] Comment on above: Performed By: #### C MP, LIPID #### [facility] [address] [place] [address] Dr. Bertha Duran AST [Catalytic activity/Vol] 31 U/L Normal 15-37 [facility] Comment on above: Performed By: #### C MP, LIPID #### [facility] [address] [place] [address] Dr. Bertha Duran Bilirubin [Mass/Vol] 1.2 mg/dL Critically high 0.2-1.0 [facility] Comment on above: Performed By: #### C MP, LIPID #### [facility] [address] [place] [address] Dr. Bertha Duran Calcium [Mass/Vol] 9.6 mg/dL Normal 8.5-10.1 [facility] Comment on above: Performed By: #### C MP, LIPID #### [facility] [address] [place] [address] Dr. Bertha Duran Chloride [Moles/Vol] 102 mmol/L Normal 98-107 [facility] Comment on above: Performed By: #### C MP, LIPID #### [facility] [address] [place] [address] Dr. Bertha Duran CO2 [Moles/Vol] 29.2 mmol/L Normal 21.0-32.0 [facility] Comment on above: Performed By: #### C MP, LIPID #### [facility] [address] [place] [address] Dr. Bertha Duran Creatinine [Mass/Vol] 1.05 mg/dL Normal 0.70-1.30 [facility] Comment on above: Performed By: #### C MP, LIPID #### [facility] [address] [place] [address] Dr. Bertha Duran EGFR-AF SERBIAN >60 Normal >=60 [facility] Comment on above: Performed By: #### C MP, LIPID #### [facility] [address] [place] [address] Dr. Bertha Duran EGFR-NON AF SERBIAN >60 Normal >=60 [facility] Comment on above: Performed By: #### C MP, LIPID #### [facility] [address] [place] [address] Dr. Bertha Duran Globulin (S) [Mass/Vol] 3.3 g/dL Normal [facility] Comment on above: Performed By: #### C MP, LIPID #### [facility] [address] [place] [address] Dr. Bertha Duran Glucose [Mass/Vol] 117 mg/dL Critically high 74-106 [facility] Comment on above: Performed By: #### C MP, LIPID #### [facility] [address] [place] [address] Dr. Bertha Duran Potassium [Moles/Vol] 4.5 mmol/L Normal 3.5-5.1 [facility] Comment on above: Performed By: #### C MP, LIPID #### [facility] [address] [place] [address] Dr. Bertha Duran Protein [Mass/Vol] 7.7 g/dL Normal 6.4-8.2 [facility] Comment on above: Performed By: #### C MP, LIPID #### [facility] [address] [place] [address] Dr. Bertha Duran Sodium [Moles/Vol] 139 mmol/L Normal 136-145 [facility] Comment on above: Performed By: #### C MP, LIPID #### [facility] [address] [place] [address] Dr. Bertha Duran Urea nitrogen [Mass/Vol] 18.0 mg/dL Normal 7.0-18.0 [facility] Comment on above: Performed By: #### C MP, LIPID #### [facility] [address] [place] [address] Dr. Bertha Duran Urea nitrogen/Creatinine [Mass ratio] 17.1 mg/mg Normal [facility] Comment on above: Performed By: #### C MP, LIPID #### [facility] [address] [place] [address] Dr. Bertha Duran UA RANDOM W/MICROSCOPICon BACTERIA NONE SEEN Normal NONE SEEN [facility] Comment on above: Performed By: #### U AMIC #### [facility] [address] [place] [address] Dr. Bertha Duran Bilirubin Ql (U) Negative Normal NEGATIVE [facility] Comment on above: Performed By: #### U AMIC #### [facility] [address] [place] [address] Dr. Bertha Duran CAST NONE SEEN Normal NONE SEEN [facility] Comment on above: Performed By: #### U AMIC #### [facility] [address] [place] [address] [address] Bertha Duran Clarity (U) CLEAR Normal CLEAR [facility] Comment on above: Performed By: #### U AMIC #### [facility] [address] [place] [address] Dr. Bertha Duran Color (U) YELLOW Normal YELLOW [facility] Comment on above: Performed By: #### U AMIC #### [facility] [address] [place] [address] Dr. Bertha Duran Crystals LM Nom (Urine sed) NONE SEEN Normal NONE SEEN [facility] Comment on above: Performed By: #### U AMIC #### [facility] [address] [place] [address] Dr. Bertha Duran Epithelial cells LM Ql (Urine sed) FEW Abnormal NONE SEEN /RARE [facility] Comment on above: Performed By: #### U AMIC #### [facility] [address] [place] [address] Dr. Bertha Duran Glucose Ql (U) Negative Normal NEGATIVE [facility] Comment on above: Performed By: #### U AMIC #### [facility] [address] [place] [address] Dr. Bertha Duran Hemoglobin Ql (U) Negative Normal NEGATIVE [facility] Comment on above: Performed By: #### U AMIC #### [facility] [address] [place] [address] Dr. Bertha Duran Ketones Ql (U) Negative Normal NEGATIVE [facility] Comment on above: Performed By: #### U AMIC #### [facility] [address] [address] [address] Bertha Duran LEUKOCYTES Negative Normal NEGATIVE [facility] Comment on above: Performed By: #### U AMIC #### [facility] [address] [place] [address] [address] Bertha Duran MUCOUS SMALL Abnormal NONE SEEN [facility] Comment on above: Performed By: #### U AMIC #### [facility] [address] [place] [address] [address] Bertha Duran Nitrite Ql (U) Negative Normal NEGATIVE [facility] Comment on above: Performed By: #### U AMIC #### [facility] [address] [place] [address] Dr. Bertha Duran pH (U) 5.0 [pH] Normal 5-9 [facility] Comment on above: Performed By: #### U AMIC #### [facility] [address] [place] [address] Dr. Bertha Duran RBC NONE SEEN Abnormal 0-2 [facility] Comment on above: Performed By: #### U AMIC #### [facility] [address] [address] [address] Bertha Duran SPEC GRAVITY >=1.030 Abnormal 1.005-<=1.025 [facility] Comment on above: Performed By: #### U AMIC #### [facility] [address] [place] [address] Dr. Bertha Duran UA PROTEIN Negative Normal NEGATIVE/ TRACE [facility] Comment on above: Performed By: #### U AMIC #### [facility] [address] [address] [address] Bertha Duran Urobilinogen Qn (U) 0.2 {Queta'U}/dL Normal 0.2 - 1. 0 [facility] Comment on above: Performed By: #### U AMIC #### [facility] [address] [place] [address] Dr. Bertha Duran WBC NONE SEEN Normal NONE SEEN [facility] Comment on above: Performed By: #### U AMIC #### [facility] [address] [place], [place] [address] Dr. Bertha Duran Dermatopathologyon 0 Dermatopathology [facility] Dermatopathology Laboratory [address] [place] [id number] DERMATOPATHOLOGY REPORT Name:JEN LOPEZ [facility] Rec #. [id number] Location: [facility] Date of Procedure: 04/26/2020 Race: Date Received: 04/28/2020 /Sex: 1970 (Age: 49) / M Date Reported: 05/03/2020 Other: Submitting Physician:ANNA BORJAS MD FINAL DIAGNOSIS SKIN, R CHEST, SHAVE BIOPSY: MILD SUPERFICIAL LYMPHOCYTIC INFILTRATE, SEE NOTE. Note: Microscopic examination reveals a specimen that extends into the superficial dermis. There is flattening of the epidermis with a mild superficial interstitial lymphocytic infiltrate. Multiple step sections were performed. These findings are not specific. An inflammatory condition and early regression of a melanocytic neoplasm cannot be excluded. Electronically Signed Out by STEVEN TILLMAN M.D. Electronically Signed Out By STEVEN TILLMAN MD/[facility] By the signature on this report, the individual or group listed as making the Final Interpretation/Diagno sis certifies that they have reviewed this case. 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 1.0 x 0.8 cm. Shave Biopsy. Specimens Submitted As: A: SKIN, R CHEST Gross Description: Received in formalin is one dickinson-brown piece of skin measuring [id number]. The specimen is inked and embedded in toto. dcp/04/29/2020 Normal [facility] Comment on above: Performed By: #### D #### Dermatopathology Vital Signs Date Time Vital Sign Value Performing Clinician Faci lity 03-24-2025 08:59-0400 Body mass index (BMI) [Ratio] 32.81 kg/m2 Darlyn Paul COMPLIANCE REVIEW SPECIALIST Work Phone: [facility] 03-24-2025 08:59-0400 Body temperature 98.29 [degF] Darlyn Carlitosholz COMPLIANCE REVIEW SPECIALIST Work Phone: [facility] 03-24-2025 08:59-0400 Body weight 100.79 kg Darlyn Troyhholz COMPLIANCE REVIEW SPECIALIST Work Phone: [facility] 03-24-2025 08:59-0400 Diastolic blood pressure 78 mm[Hg] Darlyn Aichholz COMPLIANCE REVIEW SPECIALIST Work Phone: [facility] 03-24-2025 08:59-0400 Heart rate 72 /min Darlyn Troyhholz COMPLIANCE REVIEW SPECIALIST Work Phone: [facility] 03-24-2025 08:59-0400 Respiratory rate 18 /min Darlyn Troyhholz COMPLIANCE REVIEW SPECIALIST Work Phone: [facility] 03-24-2025 08:59-0400 SaO2% (BldA) [Mass fraction] 97 % Darlyn Troyhholz COMPLIANCE REVIEW SPECIALIST Work Phone: [facility] 03-24-2025 08:59-0400 Systolic blood pressure 118 mm[Hg] Darlyn Carlitosholz COMPLIANCE REVIEW SPECIALIST Work Phone: [facility] 10-21-2024 18:25-0500 Body height 175.3 cm Darlyn Troyhholz COMPLIANCE REVIEW SPECIALIST Work Phone: [facility] 10-21-2024 18:25-0500 Body mass index (BMI) [Ratio] 32.49 kg/m2 Darlyn Troyhholz COMPLIANCE REVIEW SPECIALIST Work Phone: [facility] 10-21-2024 18:25-0500 Body temperature 98.49 [degF] Darlyn Troyhholz COMPLIANCE REVIEW SPECIALIST Work Phone: [facility] 10-21-2024 18:25-0500 Body weight 99.79 kg Darlyn Aichholz COMPLIANCE REVIEW SPECIALIST Work Phone: [facility] 10-21-2024 18:25-0500 Diastolic blood pressure 90 mm[Hg] Darlyn Aichholz COMPLIANCE REVIEW SPECIALIST Work Phone: [facility] 10-21-2024 18:25-0500 Heart rate 83 /min Darlyndarryl Escotoz COMPLIANCE REVIEW SPECIALIST Work Phone: [facility] 10-21-2024 18:25-0500 Respiratory rate 18 /min Darlyn Tigistz COMPLIANCE REVIEW SPECIALIST Work Phone: [facility] 10-21-2024 18:25-0500 SaO2% (BldA) [Mass fraction] 98 % Darlyn Tigistz COMPLIANCE REVIEW SPECIALIST Work Phone: [facility] 10-21-2024 18:25-0500 Systolic blood pressure 130 mm[Hg] Darlyn Carlitosholz COMPLIANCE REVIEW SPECIALIST Work Phone: [facility] 09-23-2024 08:41-0500 Body height 175.3 cm Darlyndarryl Escotoz COMPLIANCE REVIEW SPECIALIST Work Phone: [facility] 09-23-2024 08:41-0500 Body mass index (BMI) [Ratio] 32.81 kg/m2 Darlyndarryl Escotoz COMPLIANCE REVIEW SPECIALIST Work Phone: [facility] 09-23-2024 08:41-0500 Body temperature 98.29 [degF] Darlyn Carlitosholz COMPLIANCE REVIEW SPECIALIST Work Phone: [facility] 09-23-2024 08:41-0500 Body weight 100.79 kg Darlyndarryl Escotoz COMPLIANCE REVIEW SPECIALIST Work Phone: [facility] 09-23-2024 08:41-0500 Diastolic blood pressure 78 mm[Hg] Darlyndarryl Escotoz COMPLIANCE REVIEW SPECIALIST Work Phone: [facility] 09-23-2024 08:41-0500 Heart rate 72 /min Darlyn Carlitosholz COMPLIANCE REVIEW SPECIALIST Work Phone: [facility] 09-23-2024 08:41-0500 Respiratory rate 18 /min Darlyn Carlitosholz COMPLIANCE REVIEW SPECIALIST Work Phone: [facility] 09-23-2024 08:41-0500 SaO2% (BldA) [Mass fraction] 97 % Darlyn Carlitosholz COMPLIANCE REVIEW SPECIALIST Work Phone: [facility] 09-23-2024 08:41-0500 Systolic blood pressure 120 mm[Hg] Darlyn Urbinalubna COMPLIANCE REVIEW SPECIALIST Work Phone: [facility] Encounters Encounter Date Encounter Type Care Provider Facility Start: 01-17-2026 ambulatory Jayden BECK Facili ty:[facility] Start: 03-24-2025 End: 03-24-2025 Bamboo flowsheet Darlyn Urbinalubna COMPLIANCE REVIEW SPECIALIST Work Phone: [facility] Start: 03-24-2025 End: 03-24-2025 Bamboo flowsheet Darlyn Urbinalubna COMPLIANCE REVIEW SPECIALIST Work Phone: [facility] Start: 03-24-2025 End: 03-24-2025 Patient encounter status Darlyn Urbinalubna COMPLIANCE REVIEW SPECIALIST Work Phone: [facility] Start: 03-24-2025 End: 03-24-2025 Periodic preventive med est patient 40-64yrs Darlyn Urbinalubna COMPLIANCE REVIEW SPECIALIST Work Phone: [facility] Comment on above: Adult wellness visit (Primary Dx); Primary hypertension ; Class 1 obesity due to excess calories without serious comorbidity with body mass index (BMI) of 30.0 to 30.9 in adult; Mixed hyperlipidemia ; Participant in health and wellness plan; Colon cancer screening Start: 03-24-2025 End: 03-24-2025 ambulatory DARLYN HUMBERTO Not Available Start: 03-15-2025 End: 03-15-2025 Patient encounter procedure Darlyn Humberto Work Phone: [facility] [place] Work Phone: Start: 03-15-2025 End: 03-15-2025 ambulatory Darlyn Maikol Simmonsbethlubna Work Phone: [facility] Work Phone: Start: 01-11-2025 End: 01-11-2025 Lab Drop off Jayden BECK [facility] Start: 01-11-2025 End: 01-11-2025 Refill Darlyn Humberto COMPLIANCE REVIEW SPECIALIST Work Phone: [facility] Comment on above: Primary hypertension (CMS/HCC); Mixed hyperlipidemia (CMS/HCC) Start: 11-11-2024 End: 11-11-2024 Clinisync Result Encounter Darlyn Humberto COMPLIANCE REVIEW SPECIALIST Work Phone: [facility] Unsolicited Start: 11-11-2024 End: 11-11-2024 Clinisync Result Encounter Darlyn Humberto COMPLIANCE REVIEW SPECIALIST Work Phone: [facility] Unsolicited Start: 11-11-2024 End: 11-11-2024 Orders Only Darlyn Paul COMPLIANCE REVIEW SPECIALIST Work Phone: [facility] Comment on above: Scrotal mass (Primar y Dx) Start: 10-21-2024 End: 10-21-2024 Office outpatient visit 25 minutes Darlyn Paul COMPLIANCE REVIEW SPECIALIST Work Phone: [facility] Comment on above: Scrotal mass (Primar y Dx); Class 1 obesity due to excess calories without serious comorbidity with body mass index (BMI) of 30.0 to 30.9 in adult Start: 10-21-2024 End: 10-21-2024 ambulatory DARLYN HUMBERTO Not Available Start: 10-21-2024 End: 10-21-2024 Bamboo flowsheet Darlyn Humberto COMPLIANCE REVIEW SPECIALIST Work Phone: [facility] Start: 10-21-2024 End: 10-21-2024 Bamboo flowsheet Darlyn Tigistz COMPLIANCE REVIEW SPECIALIST Work Phone: [facility] Start: 09-23-2024 End: 09-23-2024 Bamboo flowsheet Darlyn Tigistz COMPLIANCE REVIEW SPECIALIST Work Phone: [facility] Start: 09-23-2024 End: 09-23-2024 Bamboo flowsheet Darlyn Humberto COMPLIANCE REVIEW SPECIALIST Work Phone: [facility] Start: 09-23-2024 End: 09-23-2024 Office outpatient visit 25 minutes Darlyn Paul COMPLIANCE REVIEW SPECIALIST Work Phone: [facility] Comment on above: Primary hypertension (CMS/HCC) (Primary Dx); Mixed hyperlipidemia (CMS/HCC); Class 1 obesity due to excess calories without serious comorbidity with body mass index (BMI) of 30.0 to 30.9 in adult Start: 09-23-2024 End: 09-23-2024 ambulatory DARLYN HUMBERTO Not Available Start: 06-19-2024 End: 06-19-2024 Refill Darlyn Paul COMPLIANCE REVIEW SPECIALIST Work Phone: [facility] Comment on above: Mixed hyperlipidemia (CMS/HCC); Primary hypertension (CMS/HCC) Start: 11-10-2022 End: 11-11-2022 ambulatory [employer] DARLYN PAUL Facility: Procedures Date Procedure Procedure Detail Performing Clinician Start: 11-11-2024 Us scrotum & contents L thanh Paul NP Work Phone: Vasectomy Jayden BECK Plan of Treatment Date Care Activity Detail Author Start: 09-23-2025 End: 09-23-2025 Patient encounter procedure 09/23/2025 9:20 AM EST [facility] [address] [place] [phone] Darlyn Paul NP [address] [place] [phone] [facility] Start: 03-24-2025 End: 03-24-2026 CBC W Auto Differential panel - Blood CBC and differential Lab Routine Participant in health and wellness plan Expected: 03/24/2025 (Approximate), Expires: 03/24/2026 [facility] Work Phone: Comment on above: Expected: 03/24/2025 (Approximate), Expires: 03/24/2026 Start: 03-24-2025 End: 03-24-2026 Comprehensive metabolic 2000 panel - Serum or Plasma Comprehensive metabolic panel Lab Routine Participant in health and wellness plan Expected: 03/24/2025 (Approximate), Expires: 03/24/2026 [facility] Comment on above: Expected: 03/24/2025 (Approximate), Expires: 03/24/2026 Start: 03-24-2025 End: 03-24-2026 Lipid 1996 panel - Serum or Plasma Lipid panel Lab Routine Participant in health and wellness plan Expected: 03/24/2025 (Approximate), Expires: 03/24/2026 [facility] Comment on above: Expected: 03/24/2025 (Approximate), Expires: 03/24/2026 Start: 03-24-2025 End: 03-24-2026 Microalbumin/Creatinine panel in random Urine Microalbumin / creatinine, urine ratio Lab Routine Participant in health and wellness plan Expected: 03/24/2025 (Approximate), Expires: 03/24/2026 [facility] Comment on above: Expected: 03/24/2025 (Approximate), Expires: 03/24/2026 Start: 03-24-2025 End: 03-24-2026 Noninvasive colorectal cancer DNA and occult blood screening [Presence] in Stool Cologuard colon cancer screening Lab Routine Colon cancer screening Expected: 03/24/2025 (Approximate), Expires: 03/24/2026 [facility] Comment on above: Expected: 03/24/2025 (Approximate), Expires: 03/24/2026 Start: 03-24-2025 End: 03-24-2026 Urinalysis complete panel - Urine Urinalysis with reflex microscopic (clean catch) Lab Routine Participant in health and wellness plan Expected: 03/24/2025 (Approximate), Expires: 03/24/2026 [facility] Comment on above: Expected: 03/24/2025 (Approximate), Expires: 03/24/2026 Start: 03-24-2025 End: 03-24-2025 Patient encounter procedure [facility] Comment on above: Primary hypertension (Primary Dx); Class 1 obesity due to excess calories without serious comorbidity with body mass index (BMI) of 30.0 to 30.9 in adult; Mixed hyperlipidemia ; Prostate cancer screening; Participant in health and wellness plan Start: 03-15-2025 MR Prostate WO and W contrast IV [facility] Start: 03-15-2025 MR prostate wo/w con MR prostate wo/ w con [facility] Start: 10-21-2024 End: 10-21-2024 Patient encounter procedure 10/21/2024 6:30 PM EST Office Visit [facility] [address] [place] [phone] Darlyn Paul NP [address] [place] [phone] Class 1 obesity due to excess calories without serious comorbidity with body mass index (BMI) of 30.0 to 30.9 in adult (Primary Dx) [facility] Comment on above: Class 1 obesity due to excess calories without serious comorbidity with body mass index (BMI) of 30.0 to 30.9 in adult (Primary Dx) Start: 10-21-2024 End: 10-21-2025 US Scrotum and testicle US scrotum Imaging High Priority Scrotal mass Expected: 10/21/2024 (Approximate), Expires: 10/21/2025 [facility] Work Phone: Comment on above: Expected: 10/21/2024 (Approximate), Expires: 10/21/2025 Start: 10-09-2024 Screening for malign ant neoplasm of colon [facility] Start: 09-23-2024 End: 09-23-2024 Patient encounter procedure 09/23/2024 8:40 AM EST Office Visit [facility] [address] [place] [phone] Darlyn Paul NP [address] [place] [phone] Primary hypertension (CMS/HCC) (Primary Dx); Mixed hyperlipidemia (CMS/HCC); Class 1 obesity due to excess calories without serious comorbidity with body mass index (BMI) of 30.0 to 30.9 in adult [facility] Comment on above: Primary hypertension (CMS/HCC) (Primary Dx); Mixed hyperlipidemia (CMS/HCC); Class 1 obesity due to excess calories without serious comorbidity with body mass index (BMI) of 30.0 to 30.9 in adult Start: 07-07-2024 End: 07-07-2024 Patient encounter procedure 07/07/2024 8:40 AM EDT Office Visit [facility] [address] [place] [address] Darlyn Paul, [place] [address] [place] [phone] [facility] Start: 1970 Screening for malign ant neoplasm of colon [facility] Payers Date Payer Category Payer Self-pay 2025 Unknown [id number] 2022 [facility] [id number] 2022 Unknown [id number] 1971 Unknown [id number] 1971 Unknown [id number] [id number] 1971 Unknown [id number] 1971 Unknown [id number] 1971 Unknown [id number] 1971 Unknown [id number] 1971 Unknown [id number] 1959 Unknown [id number] Unknown [employer] [id number] Unknown [id number] Social History Date Type Detail Facility Start: 01-02-2024 End: 01-11-2025 Tobacco smoking status [facility] Ex-smoker [facility] End: 10-07-1999 History of tobacco use Current smoker [facility] End: 10-07-1999 History of tobacco use Cigarette Smoker [facility] Start: 01-02-2024 Tobacco use and exposure Smoke less tobacco non-user [facility] Start: 01-02-2024 End: 03-24-2025 Alcoholic beverage intake Ex-drinker (finding) [facility] Start: 01-02-2024 End: 09-22-2024 History of Social function [facility] Start: 01-02-2024 End: 09-22-2024 Tobacco use panel [facility] Start: 01-02-2024 Alcohol Comment caffine: coffe e 1 daily [facility] Start: 1970 Sex assigned at Not on file [facility] How often do you nee d to have someone help you when you read instructions, pamphlets, or other written material from your doctor or pharmacy [SILS] Never [facility] Do you belong to any clubs or organizations such as yazidism groups, unions, fraternal or athletic groups, or school groups? Yes [facility] Are you now , , , , never or living with a partner? [facility] How often to you hav e a drink containing alcohol? Monthly or less [facility] How often do you hav e 6 or more drinks on 1 occasion? Never [facility] Do you feel stress - tense, restless, nervous, or anxious, or unable to sleep at night because your mind is troubled all the time - these days [OSQ] Not at all [facility] (I/We) worried wheth er (my/our) food would run out before (I/we) got money to buy more. Never true [facility] In the past 12 month s, was there a time when you were not able to pay the mortgage or rent on time? No [facility] Sexual Orientation [facility] Start: 03-16-2025 Sex Male (finding) [facility] Tobacco smoking stat us HIIS Unknown if ever smoked [facility] Work Phone: Start: 1970 Sex Assigned At Male F [facility] Clinical Notes 09-23-2024 to 03-24-2025 Darlyn Paul NP - 03/24/2025 9:28 AM Juan Carlos Paul NP - 03/24/2025 9:28 AM Juan Carlos Paul NP - 03/24/2025 9:00 AM Juan Carlos Paul NP - 03/24/2025 5:48 AM EDTPatient Instructions Note Date & Type Note Facility 03-24-2025 History of Present illness Narrative Associated Problem(s): Colon cancer screening Colon cancer screening options were discussed with patient, as well as why colon cancer screening is indicated. Options are Colonoscopy: direct visualization, every 10 years (unless indicated more frequently), risks and benefits were discussed Cologuard: every 3 years, risks and benefits were discussed , contraindications were discussed (family hx of colon cancer, colon polyps) Patient has elected to: cologuard Associated Problem(s): Adult wellness visit Reviewed Ht/Wt/BMI Recommend eye exam yearly Recommend dental exams twice a year Balance work/leisure activities Exercises is recommended most days of the week (appropriate as chronic conditions allow) Follow up yearly and prn Images from the original note were not included. Jen Lopez is a 54 y.o. male presents with chief complaint of Hypertension HPI: Diet:variety, not as good with veggies Activity: no aerobic Mental Health Concerns:no Any hearing problems: no Any Vision problems: no, last exam about a year ago Any Hospitalizations in the last year:no Specialist:urology Concerns: Updates: urology is watching PSA, had MRI normal, also going to watch the spermatacele Hypertension This is a chronic problem. The current episode started more than 1 year ago. The problem is unchanged. The problem is controlled. Pertinent negatives include no headaches, orthopnea, peripheral edema or PND. There are no associated agents to hypertension. Risk factors for coronary artery disease include male gender and obesity. Past treatments include RONY inhibitors. The current treatment provides significant improvement. There are no compliance problems. There is no history of CAD/PR, heart failure or PVD. SUBJECTIVE: MEDICATIONS: Current Outpatient Medications Medication Instructions lisinopril 20 mg, Oral, Daily MAGNESIUM GLYCINATE PO 240 mg, 2 times daily rosuvastatin (CRESTOR) 20 mg, Oral, Nightly ALLERGIES: No Known Allergies REVIEW OF SYMPTOMS: Review of Systems Constitutional: Negative for activity change, appetite change and unexpected weight change. HENT: Negative for ear pain, nosebleeds, sneezing, trouble swallowing and voice change. Eyes: Negative for pain, discharge and visual disturbance. Respiratory: Negative for apnea, chest tightness and wheezing. Cardiovascular: Negative for orthopnea, leg swelling and PND. Gastrointestinal: Negative for abdominal distention, blood in stool, constipation and diarrhea. Genitourinary: Negative for decreased urine volume, difficulty urinating, dysuria and hematuria. Skin: Negative for color change. Neurological: Negative for dizziness, tremors, seizures and headaches. Psychiatric/Behavioral: Negative for agitation, decreased concentration, hallucinations, self-injury and suicidal ideas. The patient is not nervous/anxious. Hematological: Negative for adenopathy. Does not bruise/bleed easily. Endocrine: Negative for cold intolerance, heat intolerance, polydipsia and polyuria. Allergic/Immunologic: Negative for environmental allergies and food allergies. PAST MEDICAL HISTORY History reviewed. No pertinent past medical history. Past Surgical History: Procedure Laterality Date MYRINGOTOMY W/ TUBES TONSILLECTOMY VASECTOMY family history is not on file. OBJECTIVE: Visit Vitals BP 118/78 (BP Location: Left arm, Patient Position: Sitting, BP Cuff Size: Adult long) Pulse 72 Temp 98.3 F (Temporal) Resp 18 Wt 222 lb 3.2 oz SpO2 97% BMI 32.81 kg/m Smoking Status Former BSA 2.22 m Physical Exam Vitals and nursing note reviewed. Constitutional: Appearance: Normal appearance. HENT: Head: Normocephalic. Right Ear: External ear normal. Left Ear: External ear normal. Nose: Nose normal. Mouth/Throat: Mouth: Mucous membranes are moist. Pharynx: Oropharynx is clear. Eyes: Extraocular Movements: Extraocular movements intact. Conjunctiva/sclera: Conjunctivae normal. Neck: Vascular: No carotid bruit. Cardiovascular: Rate and Rhythm: Normal rate and regular rhythm. Pulses: Normal pulses. Heart sounds: Normal heart sounds. No murmur heard. Pulmonary: Effort: Pulmonary effort is normal. Breath sounds: Normal breath sounds. No wheezing or rhonchi. Abdominal: General: Bowel sounds are normal. Palpations: Abdomen is soft. There is no mass. Tenderness: There is no abdominal tenderness. Musculoskeletal: Cervical back: Neck supple. Right lower leg: No edema. Left lower leg: No edema. Skin: General: Skin is warm and dry. Capillary Refill: Capillary refill takes 2 to 3 seconds. Neurological: General: No focal deficit present. Mental Status: He is alert. Psychiatric: Mood and Affect: Mood normal. Behavior: Behavior normal. Thought Content: Thought content normal. Judgment: Judgment normal. ASSESSMENT AND PLAN: Follow up in about 6 months (around 09/23/2025) for Recheck. Problem List Items Addressed This Visit Primary hypertension - Primary Please check blood pressure daily and record DASH diet Limit caffeine Take medication as directed Contact office if chest pain, pressure, dizziness, shortness of breath, swelling legs Recommend slow position changes Current med: lisinopril Relevant Medications lisinopril 20 MG tablet Mixed hyperlipidemia Current medication crestor Check labs yearly and prn dose changes Relevant Medications rosuvastatin (Crestor) 20 MG tablet Participant in health and wellness plan Labs ordered Relevant Orders CBC and differential Lipid panel Urinalysis with reflex microscopic (clean catch) Microalbumin / creatinine, urine ratio Comprehensive metabolic panel Class 1 obesity due to excess calories without serious comorbidity in adult Discussed with patient their BMI (actual, verses recommended). We have also discussed lifestyle modifications: attempts to perform physical activity as chronic conditions allow, also to monitor dietary intake: increasing protein/fruits/veggies and lowering carb intake (unless contraindicated). Limit sodas, juices, and sugary drinks. Colon cancer screening Colon cancer screening options were discussed with patient, as well as why colon cancer screening is indicated. Options are Colonoscopy: direct visualization, every 10 years (unless indicated more frequently), risks and benefits were discussed Cologuard: every 3 years, risks and benefits were discussed , contraindications were discussed (family hx of colon cancer, colon polyps) Patient has elected to: cologuard Relevant Orders Cologuard colon cancer screening Adult wellness visit Reviewed Ht/Wt/BMI Recommend eye exam yearly Recommend dental exams twice a year Balance work/leisure activities Exercises is recommended most days of the week (appropriate as chronic conditions allow) Follow up yearly and prn Associated Problem(s): Participant in health and wellness plan Labs ordered Associated Problem(s): Mixed hyperlipidemia Current medication crestor Check labs yearly and prn dose changes Associated Problem(s): Class 1 obesity due to excess calories without serious comorbidity in adult Discussed with patient their BMI (actual, verses recommended). We have also discussed lifestyle modifications: attempts to perform physical activity as chronic conditions allow, also to monitor dietary intake: increasing protein/fruits/veggies and lowering carb intake (unless contraindicated). Limit sodas, juices, and sugary drinks. Associated Problem(s): Primary hypertension Please check blood pressure daily and record DASH diet Limit caffeine Take medication as directed Contact office if chest pain, pressure, dizziness, shortness of breath, swelling legs Recommend slow position changes Current med: lisinopril documented in this encounter [facility] 03-24-2025 Instructions Darlyn Paul NP - 03/24/2025 9:00 AM EDT Fasting labs Cologuard testing documented in this encounter [facility] 01-11-2025 Note Patient Education Urology Testicular Self-Exam A self-examination of your testicles (testicular self-exam) involves looking at and feeling your testicles for abnormal lumps or swelling. Several things can cause swelling, lumps, or pain in your testicles, including: ??? Injuries. ??? Inflammation. ??? Infection. ??? Buildup of fluids around the testicle (hydrocele). ??? Twisted testicles (testicular torsion). ??? Testicular cancer. You may be at risk for this if you have: ? A testicle that has not descended. ? Previously had testicular cancer. ? A family history of testicular cancer. General tips ??? It is easiest to do a self-exam during or after a warm bath or shower. Testicles are harder to examine when you are cold because the muscles attached to the testicles retract and pull them up higher or into the abdomen. ??? A normal testicle is egg-shaped and feels firm. It is smooth and not tender. ??? It is normal to feel a firm, spaghetti-like cord at the back of your testicle. This is the spermatic cord. ??? Do a self-exam once a month. How to do a testicular self-exam 1. Stand and hold your penis away from your body. 2. Look at each testicle to check for changes in appearance, such as swelling or changes in size or shape. 3. Roll each testicle between your thumb and forefinger, feeling the entire testicle. Feel for: ??? Lumps. ??? Swelling. ??? Discomfort. 4. Check for swelling or tender bumps in the groin area. Your groin is where your lower belly (abdomen) meets your upper thighs. Contact a health care provider if: ??? You find a bump or lump. This may be a small, hard bump that is the size of a pea. ??? You have swelling, pain, or soreness in your testicle area. ??? You see or feel any other changes in your testicles. This information is not intended to replace advice given to you by your health care provider. Make sure you discuss any questions you have with your health care provider. Document Revised: 07/08/2023 Document Reviewed: 07/08/2023 [employer] Patient Education ? 2023 [place]. Spermatocele A spermatocele is a fluid-filled sac (cyst) inside the sac that holds the testicles (scrotum). This type of cyst often forms in the epididymis. The epididymis is a coiled tube at the top of each testicle, and this tube is where sperm are stored. The cyst sometimes forms along a tube called the vas deferens, which is a tube that carries sperm away from the epididymis. Spermatoceles are usually painless. Most cysts are small, but they can grow larger. Spermatoceles are not cancerous (are benign). What are the causes? The cause of this condition is not known. However, this condition usually results from a blockage in one of the many small tubes (tubules) that carry sperm from your testicle to your vas deferens. What are the signs or symptoms? In most cases, small cysts do not cause symptoms. However, symptoms sometimes occur. Symptoms of this condition include: ??? Dull pain. ??? A feeling of heaviness. ??? An enlarged scrotum, if your cyst is large. How is this diagnosed? This condition is diagnosed based on a physical exam. ??? You or your health care provider may notice your cyst when feeling your scrotum. ??? Your health care provider may shine a light through (transilluminate) your scrotum to see if light will pass through your cyst. You may have an ultrasound of the scrotum to rule out a tumor. How is this treated? Small spermatoceles do not need to be treated. If your spermatocele has grown large or is uncomfortable, your health care provider may recommend surgery to remove it. Follow these instructions at home: ??? Check your spermatocele regularly for any changes. ??? Do regular self-exams of your scrotum. ??? Keep all follow-up visits. This is important. Contact a health care provider if: ??? Your spermatocele gets larger. ??? You have pain in your scrotum. ??? Your spermatocele comes back after treatment. Get help right away if: ??? You experience severe pain and redness of your scrotum. Summary ??? A spermatocele is a fluid-filled sac, or a cyst, inside the sac that holds the testicles (scrotum). This condition is usually painless, and it is not cancerous (is benign). ??? Your health care provider may recommend surgery to remove your spermatocele if it grows large or is uncomfortable. ??? If you have a spermatocele, check for any changes and do self-exams of your scrotum. ??? Keep all follow-up visits. This is important. This information is not intended to replace advice given to you by your health care provider. Make sure you discuss any questions you have with your health care provider. Document Revised: 05/14/2022 Document Reviewed: 05/14/2022 [employer] Patient Education ? 2023 [place]. [facility] 10-21-2024 History of Present illness Narrative Associated Problem(s): Scrotal mass Differentials: hernia, varicocele, hydrocele, or testicular mass Check US scrotom and send to urology pending results Pt noticed another protrusion in his lower abd/groin area about 2 weeks ago and is concerned it could be another hernia Images from the original note were not included. Jen Lopez is a 53 y.o. male presents with chief complaint of Hypertension HPI: Hx of right inguinal hernia as well as umbilical hernia: had for years no pain no NV or constipation About 2 weeks ago noted a mass/bulge in left scrotal region. No pain, did report have a harsh cough so not sure if something happened then or not. No constipation, occ difficulty emptying bladder all the way, no dysuria, no bloody stools or urine no family hx of testicular cancer SUBJECTIVE: MEDICATIONS: Current Outpatient Medications Medication Instructions lisinopril 20 mg, Oral, Daily MAGNESIUM GLYCINATE PO 240 mg, 2 times daily rosuvastatin (CRESTOR) 20 mg, Oral, Nightly ALLERGIES: No Known Allergies REVIEW OF SYMPTOMS: Review of Systems Constitutional: Negative for activity change, appetite change and unexpected weight change. HENT: Negative for ear pain, nosebleeds, sneezing, trouble swallowing and voice change. Eyes: Negative for pain, discharge and visual disturbance. Respiratory: Negative for apnea, chest tightness and wheezing. Cardiovascular: Negative for leg swelling. Gastrointestinal: Negative for abdominal distention, blood in stool, constipation and diarrhea. Genitourinary: Positive for scrotal swelling. Negative for decreased urine volume, difficulty urinating (occ), dysuria and hematuria. Skin: Negative for color change. Neurological: Negative for dizziness, tremors and seizures. Psychiatric/Behavioral: Negative for agitation, decreased concentration, hallucinations, self-injury and suicidal ideas. The patient is not nervous/anxious. Hematological: Negative for adenopathy. Does not bruise/bleed easily. Endocrine: Negative for cold intolerance, heat intolerance, polydipsia and polyuria. Allergic/Immunologic: Negative for environmental allergies and food allergies. PAST MEDICAL HISTORY No past medical history on file. Past Surgical History: Procedure Laterality Date MYRINGOTOMY W/ TUBES TONSILLECTOMY VASECTOMY family history is not on file. OBJECTIVE: Visit Vitals BP 130/90 Pulse 83 Temp 98.5 F (Temporal) Resp 18 Ht 5' 9 Wt 220 lb SpO2 98% BMI 32.49 kg/m Smoking Status Former BSA 2.2 m Physical Exam Vitals and nursing note reviewed. Constitutional: Appearance: Normal appearance. HENT: Head: Normocephalic. Right Ear: External ear normal. Left Ear: External ear normal. Nose: Nose normal. Mouth/Throat: Mouth: Mucous membranes are moist. Pharynx: Oropharynx is clear. Eyes: Extraocular Movements: Extraocular movements intact. Conjunctiva/sclera: Conjunctivae normal. Cardiovascular: Rate and Rhythm: Normal rate and regular rhythm. Pulses: Normal pulses. Heart sounds: Normal heart sounds. Pulmonary: Effort: Pulmonary effort is normal. Breath sounds: Normal breath sounds. Abdominal: General: Bowel sounds are normal. Palpations: Abdomen is soft. Tenderness: There is no abdominal tenderness. There is no guarding or rebound. Hernia: A hernia (umbilical) is present. Genitourinary: Comments: +right inguinal hernia noted, large and extends into suprapubic region Right testicle no mass noted, left testicle no definite mass, however above the testicle region is a mass that appears to be moveable, and possibly a hydrocele, not definite to be a hernia either.no tenderness, no induration, no erythema Musculoskeletal: Cervical back: Neck supple. Right lower leg: No edema. Left lower leg: No edema. Skin: General: Skin is warm and dry. Capillary Refill: Capillary refill takes 2 to 3 seconds. Neurological: General: No focal deficit present. Mental Status: He is alert. Psychiatric: Mood and Affect: Mood normal. Behavior: Behavior normal. Thought Content: Thought content normal. Judgment: Judgment normal. ASSESSMENT AND PLAN: No follow-ups on file. Problem List Items Addressed This Visit Class 1 obesity due to excess calories without serious comorbidity in adult - Primary Discussed with patient their BMI (actual, verses recommended). We have also discussed lifestyle modifications: attempts to perform physical activity as chronic conditions allow, also to monitor dietary intake: increasing protein/fruits/veggies and lowering carb intake (unless contraindicated). Limit sodas, juices, and sugary drinks. Also discussed oral medications that can be utilized for weight loss, as well as surgical options for weight loss. Scrotal mass Differentials: hernia, varicocele, hydrocele, or testicular mass Check US scrotom and send to urology pending results Relevant Orders US scrotum Associated Problem(s): Class 1 obesity due to excess calories without serious comorbidity in adult Discussed with patient their BMI (actual, verses recommended). We have also discussed lifestyle modifications: attempts to perform physical activity as chronic conditions allow, also to monitor dietary intake: increasing protein/fruits/veggies and lowering carb intake (unless contraindicated). Limit sodas, juices, and sugary drinks. Also discussed oral medications that can be utilized for weight loss, as well as surgical options for weight loss. documented in this encounter [facility] 10-21-2024 Instructions Darlyn Paul NP - 10/21/2024 6:30 PM EST Get US done at [facility], they should call you Pending results will send to urology documented in this encounter [facility] 09-23-2024 History of Present illness Narrative Images from the original note were not included. Jen Lpoez is a 53 y.o. male presents with chief complaint of Hypertension HPI: Hypertension This is a chronic problem. The current episode started more than 1 year ago. The problem is unchanged. The problem is controlled. Pertinent negatives include no blurred vision, chest pain, neck pain, orthopnea, peripheral edema or shortness of breath. There are no associated agents to hypertension. Risk factors for coronary artery disease include obesity and dyslipidemia. Past treatments include RONY inhibitors. The current treatment provides significant improvement. There are no compliance problems. SUBJECTIVE: MEDICATIONS: Current Outpatient Medications Medication Instructions lisinopril 20 mg, Oral, Daily rosuvastatin (CRESTOR) 20 mg, Oral, Nightly ALLERGIES: No Known Allergies REVIEW OF SYMPTOMS: Review of Systems Constitutional: Negative for activity change, appetite change and unexpected weight change. HENT: Negative for ear pain, nosebleeds, sneezing, trouble swallowing and voice change. Eyes: Negative for blurred vision, pain, discharge and visual disturbance. Respiratory: Negative for apnea, chest tightness, shortness of breath and wheezing. Cardiovascular: Negative for chest pain, orthopnea and leg swelling. Gastrointestinal: Negative for abdominal distention, blood in stool, constipation and diarrhea. Genitourinary: Negative for decreased urine volume, difficulty urinating, dysuria and hematuria. Musculoskeletal: Negative for neck pain. Skin: Negative for color change. Neurological: Negative for dizziness, tremors and seizures. Psychiatric/Behavioral: Negative for agitation, decreased concentration, hallucinations, self-injury and suicidal ideas. The patient is not nervous/anxious. Hematological: Negative for adenopathy. Does not bruise/bleed easily. Endocrine: Negative for cold intolerance, heat intolerance, polydipsia and polyuria. Allergic/Immunologic: Negative for environmental allergies and food allergies. PAST MEDICAL HISTORY No past medical history on file. Past Surgical History: Procedure Laterality Date MYRINGOTOMY W/ TUBES TONSILLECTOMY VASECTOMY family history is not on file. OBJECTIVE: Visit Vitals BP 120/78 (BP Location: Left arm, Patient Position: Sitting, BP Cuff Size: Adult long) Pulse 72 Temp 98.3 F (Temporal) Resp 18 Ht 5' 9 Wt 222 lb 3.2 oz SpO2 97% BMI 32.81 kg/m Smoking Status Former BSA 2.22 m Physical Exam Vitals and nursing note reviewed. Constitutional: Appearance: Normal appearance. HENT: Head: Normocephalic. Right Ear: External ear normal. Left Ear: External ear normal. Nose: Nose normal. Mouth/Throat: Mouth: Mucous membranes are moist. Pharynx: Oropharynx is clear. Eyes: Extraocular Movements: Extraocular movements intact. Conjunctiva/sclera: Conjunctivae normal. Neck: Vascular: No carotid bruit. Cardiovascular: Rate and Rhythm: Normal rate and regular rhythm. Pulses: Normal pulses. Heart sounds: Normal heart sounds. Pulmonary: Effort: Pulmonary effort is normal. Breath sounds: Normal breath sounds. Abdominal: General: Bowel sounds are normal. Palpations: Abdomen is soft. Musculoskeletal: Cervical back: Neck supple. Right lower leg: No edema. Left lower leg: No edema. Skin: General: Skin is warm and dry. Capillary Refill: Capillary refill takes 2 to 3 seconds. Neurological: General: No focal deficit present. Mental Status: He is alert. Psychiatric: Mood and Affect: Mood normal. Behavior: Behavior normal. Thought Content: Thought content normal. Judgment: Judgment normal. ASSESSMENT AND PLAN: No follow-ups on file. Problem List Items Addressed This Visit Primary hypertension (CMS/HCC) - Primary Please check blood pressure daily and record DASH diet Limit caffeine Take medication as directed Contact office if chest pain, pressure, dizziness, shortness of breath, swelling legs Recommend slow position changes Current med: lisinopril Mixed hyperlipidemia (CMS/HCC) Current medication crestor Check labs yearly and prn dose changes Class 1 obesity due to excess calories without serious comorbidity in adult Discussed with patient their BMI (actual, verses [...] loss. Has gained 9 pounds since 12/2023 Associated Problem(s): Class 1 obesity due to excess calories without serious comorbidity in adult Discussed with patient their BMI (actual, verses [...] loss. Has gained 9 pounds since 12/2023 Associated Problem(s): Mixed hyperlipidemia (CMS/HCC) Current medication crestor Check labs yearly and prn dose changes Associated Problem(s): Primary hypertension (CMS/HCC) Please check blood pressure daily and record DASH diet Limit caffeine Take medication as directed Contact office if chest pain, pressure, dizziness, shortness of breath, swelling legs Recommend slow position changes Current med: lisinopril documented in this encounter [facility] 09-23-2024 Instructions Darlyn Paul NP - 09/23/2024 8:40 AM EST No changes in med/doses Recommend focusing on some life changes for weight loss: possibly 30 minutes exercise most days of week, try to cut back on carbs and portion sizes, documented in this encounter [facility] Evaluation + Plan note Future Appointments Appointment Date:01/17/2026 09:45:00 AM Scheduled Provider:Jayden BECK MD Location:[facility] Appointment Type:URO Office Visit [facility] Evaluation note Diagnosis Mixed hyperlipidemia (CMS/HCC) Mixed hyperlipidemia Primary hypertension (CMS/HCC) Unspecified essential hypertension documented in this encounter [facility] HealthcareEvaluation note* Diagnosis Primary hypertension (CMS/HCC)- Primary Unspecified essential hypertension Participant in health and wellness plan Prostate cancer screening Special screening for malignant neoplasm of prostate Elevated glucose level Mixed hyperlipidemia (CMS/HCC) Mixed hyperlipidemia Primary hypertension (CMS/HCC)- Primary Unspecified essential hypertension Mixed hyperlipidemia (CMS/HCC) Mixed hyperlipidemia Class 1 obesity due to excess calories without serious comorbidity with body mass index (BMI) of 30.0 to 30.9 in adult documented in this encounter [facility] HealthcareEvaluation note* Diagnosis Primary hypertension (CMS/HCC)- Primary Unspecified essential hypertension Participant in health and wellness plan Prostate cancer screening Special screening for malignant neoplasm of prostate Elevated glucose level Mixed hyperlipidemia (CMS/HCC) Mixed hyperlipidemia Primary hypertension (CMS/HCC)- Primary Unspecified essential hypertension Mixed hyperlipidemia (CMS/HCC) Mixed hyperlipidemia Class 1 obesity due to excess calories without serious comorbidity with body mass index (BMI) of 30.0 to 30.9 in adult Needs flu shot Need for prophylactic vaccination and inoculation against influenza Scrotal mass- Primary Other specified disorder of male genital organs Class 1 obesity due to excess calories without serious comorbidity with body mass index (BMI) of 30.0 to 30.9 in adult documented in this encounter [facility] HealthcareEvaluation note* Diagnosis Primary hypertension (CMS/HCC)- Primary Unspecified essential hypertension Participant in health and wellness plan Prostate cancer screening Special screening for malignant neoplasm of prostate Elevated glucose level Mixed hyperlipidemia (CMS/HCC) Mixed hyperlipidemia Primary hypertension (CMS/HCC)- Primary Unspecified essential hypertension Mixed hyperlipidemia (CMS/HCC) Mixed hyperlipidemia Class 1 obesity due to excess calories without serious comorbidity with body mass index (BMI) of 30.0 to 30.9 in adult Needs flu shot Need for prophylactic vaccination and inoculation against influenza Scrotal mass- Primary Other specified disorder of male genital organs Class 1 obesity due to excess calories without serious comorbidity with body mass index (BMI) of 30.0 to 30.9 in adult Scrotal mass- Primary Other specified disorder of male genital organs documented in this encounter [facility] note* Diagnosis Primary hypertension (CMS/HCC)- Primary Unspecified essential hypertension Participant in health and wellness plan Prostate cancer screening Special screening for malignant neoplasm of prostate Elevated glucose level Mixed hyperlipidemia (CMS/HCC) Mixed hyperlipidemia Primary hypertension (CMS/HCC)- Primary Unspecified essential hypertension Mixed hyperlipidemia (CMS/HCC) Mixed hyperlipidemia Class 1 obesity due to excess calories without serious comorbidity with body mass index (BMI) of 30.0 to 30.9 in adult Needs flu shot Need for prophylactic vaccination and inoculation against influenza Scrotal mass- Primary Other specified disorder of male genital organs Class 1 obesity due to excess calories without serious comorbidity with body mass index (BMI) of 30.0 to 30.9 in adult Primary hypertension (CMS/HCC) Unspecified essential hypertension Mixed hyperlipidemia (CMS/HCC) Mixed hyperlipidemia documented in this encounter [facility] HealthcareEvaluation noteNo assessment information [facility]Prov[facility] Work Phone: Evaluation note* Diagnosis Primary hypertension- Primary Unspecified essential hypertension Participant in health and wellness plan Prostate cancer screening Special screening for malignant neoplasm of prostate Elevated glucose level Mixed hyperlipidemia Mixed hyperlipidemia Primary hypertension- Primary Unspecified essential hypertension Mixed hyperlipidemia Mixed hyperlipidemia Class 1 obesity due to excess calories without serious comorbidity with body mass index (BMI) of 30.0 to 30.9 in adult Needs flu shot Need for prophylactic vaccination and inoculation against influenza Scrotal mass- Primary Other specified disorder of male genital organs Class 1 obesity due to excess calories without serious comorbidity with body mass index (BMI) of 30.0 to 30.9 in adult Adult wellness visit- Primary Primary hypertension Unspecified essential hypertension Class 1 obesity due to excess calories without serious comorbidity with body mass index (BMI) of 30.0 to 30.9 in adult Mixed hyperlipidemia Mixed hyperlipidemia Participant in health and wellness plan Colon cancer screening Special screening for malignant neoplasms, colon documented in this encounter [facility] Narrative No data available for this section [facility] Hospital Discharge instructions No data available for this section [facility] Progress note No data available for this section [facility] Summary Purpose Family History No Family History Records FoundNo Family History Records Found No data available for this section No Family History Records FoundNo Family History Records FoundNo Family History Records FoundNo Family History Records Found Advance Directives No Advanced Directives Records Found Advance Directive Response Recorded Date/ Time Advance Directives No February 18 2:28pm Chief Complaint and Reason for Visit Chief Complaint Admit Date R97.20 March 15, 2025 6:44p m Additional Source Comments (unrecognized sect ion and content) No Status Records FoundNo Status Records FoundNo Status Records FoundNo Status Records FoundNo Status Records FoundNo Status Records Found INFORMATION SOURCE (unrecogn ized section and content) DATE CREATED AUTHOR 10/28/2020 [facility] DATE CREATED AUTHOR AUTHOR'S ORGANIZ ATION 11/13/2022 [facility] DATE CREATED AUTHOR AUTHOR'S ORGANIZ ATION 01/23/2025 [facility] DATE CREATED AUTHOR AUTHOR'S ORGANIZ ATION 03/27/2025 [facility] DATE CREATED AUTHOR AUTHOR'S ORGANIZ ATION 04/19/2025 [facility] y[facility] Reason for Visit (unrecogniz ed section and content) Reason Comments Med Refill Reason Comments Hypertension Care Teams (unrecognized sec tion and content) Leather Toggler Relationship Specialty Start Date End Date Thierno Del Toro MD [address] [place] [address] PCP - General Family Medicine 01/02/24 Darlyn Paul NP [address] [place] [address] Referring Physician Nurse Practitioner 04/19/23 Darlyn Paul NP [address] [place] [phone] Nurse Practitioner Family Medicine 01/02/24 Leather Toggler Relationship Specialty Start Date End Date Thierno Del Toro MD [address] [place] [phone] PCP - General Family Medicine 01/02/24 Darlyn Paul NP [address] [place] [phone] PCP - [employer] 06/07/24 Darlyn Paul NP [address] [place] [phone] Referring Physician Nurse Practitioner 04/19/23 Darlyn Paul NP [address] [place] [phone] Nurse Practitioner Family Medicine 01/02/24 Leather Toggler Relationship Specialty Start Date End Date Thierno Del Toro MD [address] [place] [phone] PCP - General Family Medicine 01/02/24 Darlyn Paul NP [address] [place] [phone] PCP - [employer] 06/07/24 Darlyn Paul NP [address] [place] [phone] Referring Physician Nurse Practitioner 04/19/23 Darlyn Paul NP [address] [place] [phone] Nurse Practitioner Family Medicine 01/02/24 Leather Toggler Relationship Specialty Start Date End Date Thierno Del Toro MD [address] [place] [phone] PCP - General Family Medicine 01/02/24 Darlyn Paul NP [address] [place] [phone] PCP - [employer] 06/07/24 Darlyn Paul NP [address] [place] [phone] Referring Physician Nurse Practitioner 04/19/23 Darlyn Paul NP [address] [place] [phone] Nurse Practitioner Family Medicine 01/02/24 Leather Toggler Relationship Specialty Start Date End Date Thierno Del Toro MD [address] [place] [phone] PCP - General Family Medicine 01/02/24 Darlyn Paul NP [address] [place] [phone] PCP - [employer] 06/07/24 Darlyn Paul NP [address] [place] [phone] Referring Physician Nurse Practitioner 04/19/23 Darlyn Paul NP [address] [place] [phone] Nurse Practitioner Family Medicine 01/02/24 Leather Toggler Relationship Specialty Start Date End Date Thierno Del Toro MD [address] [place] [phone] PCP - General Family Medicine 01/02/24 Darlyn Paul NP [address] [place] [phone] PCP - [facility] 06/07/24 Darlyn Paul NP [address] [place] [phone] Referring Physician Nurse Practitioner 04/19/23 Darlyn Paul NP [address] [place] [phone] Nurse Practitioner Family Medicine 01/02/24 Leather Toggler Relationship Specialty Start Date End Date Thierno Del Toro MD [address] [place] [phone] PCP - General Family Medicine 01/02/24 Darlyn Paul NP [address] [place] [phone] [facility] Darlyn Paul NP [address] [place] [phone] Referring Physician Nurse Practitioner 04/19/23 Darlyn Paul NP [address] [place] [phone] Nurse Practitioner Family Medicine 01/02/24 Team Status: Active Member Role Status Dates Darlyn Paul Primary Care Provider Active Team Status: Inactive Member Role Status Dates Jayden Beck MD Attending Provider Active St art: March 15, 2025 End: March 15, 2025 Darlyn Paul Primary Care Provider Active Sta rt: March 15, 2025 End: March 15, 2025 Leather Toggler Relationship Specialty Start Date End Date Thierno Del Toro MD [address] [place] [phone] PCP - General Family Medicine 01/02/24 Darlyn Paul NP [address] [place] [phone] Referring Physician Nurse Practitioner 04/19/23 Darlyn Paul NP [address] [place] [phone] Nurse Practitioner Family Medicine 01/02/24 Leather Toggler Relationship Specialty Start Date End Date Thierno Del Toro MD [address] [place] [phone] PCP - General Family Medicine 01/02/24 Darlyn Paul NP [address] [place] [address] Referring Physician Nurse Practitioner 04/19/23 Darlyn Paul NP [address] [place] [address] Nurse Practitioner Family Medicine 01/02/24 Goals (unrecognized section and content) Goals may be documented in a n alternate section FOR RECORDS PERTAINING TO PATIENTS WHO ARE OR HAVE BEEN ENROLLED IN A CHEMICAL DEPENDENCY/SUBSTANCEABUSE PROGRAM, SOME INFORMATION MAY BE OMITTED. This clinical summary was aggregated from multiple sources. Caution should be exercised in using it in the provision of clinical care. This summary normalizes information from multiple sources, and as a consequence, information in this document may materially change the coding, format and clinical context of patient data. In addition, data may be omitted in some cases. CLINICAL DECISIONS SHOULD BE BASED ON THE PRIMARY CLINICAL RECORDS. [facility] [employer] provides no warranty or guarantee of the accuracy or completeness of information in this document.
--- OUTSIDE RECORDS SUMMARY | 2025-05-29 08:31 | XMS_ITS | Encounter Summary ---
Author Organization [facility] Address [address] [place] [address] Care Team Providers Care Refinisher Name Role Phone Darlyn Paul VACUUM DRIER TENDER Unavailable [phone] Thierno Del Toro MD Primary Care Provider Darlyn Paul VACUUM DRIER TENDER Unavailable [phone] Darlyn Paul VACUUM DRIER TENDER Unavailable [phone] Reason for Visit * Reason Comments Med Refill Encounter Details Date Type Department Care Team (Late st Contact Info) Description 09/17/2024 Refill [facility] [address] [place] [address] Darlyn Paul, VACUUM DRIER TENDER [address] [place] [address] Primary hypertension ; Mixed hyperlipidemia Social History Tobacco Use Types Packs/Day Years Used Date Smoking Tobacco: Former Cigarettes Q uit: 1999 Smokeless Tobacco: Never Alcohol Use Standard Drinks/Week Comments Not Currently 0 (1 standard drink = 0.6 oz pur e alcohol) caffine: coffee 1 daily Sex and Gender Information Value Date Recorded Sex Assigned at Not on file Legal Sex Male 10:53 PM EDT Gender Identity Not on file Sexual Orientation Not on file documented as of this encounter Miscellaneous Notes * Telephone Encounter - Darlyn Paul NP - 09/17/2024 9:12 PM EST Contact pt, has not been seen since 12/28, cancelled 07/07/24 appt Needs a appt for med refills [place] documented in this encounter Plan of Treatment Upcoming Encounters Date Type Department Care Team (Late st Contact Info) Description 09/23/2025 9:20 AM EST Office Visit [facility] [address] [place] [address] Darlyn Paul NP [address] [place] [phone] documented as of this encounter Visit Diagnoses Diagnosis Primary hypertension Unspecified essential hypertension Mixed hyperlipidemia Mixed hyperlipidemia documented in this encounter Care Teams Refinisher Relationship Specialty Start Date End Date Thierno Del Toro MD [address] [place] [phone] PCP - General Family Medicine 01/02/24 Darlyn Paul NP [address] [place] [phone] PCP - [facility] 06/07/24 Darlyn Paul NP [address] [place] [phone] Referring Physician Nurse Practitioner 04/19/23 Darlyn Paul NP [address] [place] [phone] Nurse Practitioner Family Medicine 01/02/24 documented as of this encounter
--- OUTSIDE RECORDS SUMMARY | 2025-05-29 08:32 | XMS_ITS | Clinical Summary ---
Author Organization [facility] Address [address] [place] [address] Phone Care Team Providers Care Stock Receiver Name Role Phone Unavailable Primary Care Provider Unavailabl e Social History Tobacco Use Types Packs/Day Years Used Date Smoking Tobacco: Never Assessed Sex and Gender Information Value Date Recorded Sex Assigned at Not on file Legal Sex Male 4:45 PM EST Gender Identity Not on file Sexual Orientation Not on file Plan of Treatment Not on file
[2025-05-29 09:20] LABS: Hematocrit 46.7 % (42.0-54.0); Hemoglobin 15.7 g/dL (14.0-18.0); Immature Granulocytes Abs Auto 0.01 10^3/uL (0.00-0.03); Immature Granulocytes Pct Auto 0.2 % (0.0-0.5); Lymphocytes Absolute Auto 1.4 10^3/uL (1.2-3.8); Mean Corpuscular HGB Conc 33.6 g/dL (29.9-35.2); Mean Corpuscular Hemoglobin 29.8 pg (25.9-34.0); Mean Corpuscular Volume 88.6 fL (80.0-94.0); Platelet Count 167 10^3/uL (150-450); Red Blood Count 5.27 10^6/uL (4.70-6.10); White Blood Count 5.7 10^3/uL (4.0-11.0)
[2025-05-29 09:35] LABS: Glucose Urine UA NEGATIVE (NEGATIVE)
[2025-05-29 09:43] LABS: Alanine Aminotransferase 44 U/L (16-63); Albumin Globulin Ratio 1.1; Albumin Level 3.9 g/dL (3.4-5.0); Alkaline Phosphatase 64 U/L (46-116); Anion Gap 10.5; Aspartate Amino Transferase 27 U/L (15-37); Blood Urea Nitrogen 16.0 mg/dL (7.0-18.0); Calcium 8.9 mg/dL (8.5-10.1); Carbon Dioxide 28.5 mmol/L (21.0-32.0); Chloride 104 mmol/L (98-107); Cholesterol 99 mg/dL (<=200); Estimated GFR (African America >60 (>=60 mL/min/1.73m^2); Estimated GFR (Non-African Ame >60 (>=60 mL/min/1.73m^2); Globulin 3.4 g/dL; Glucose 121 mg/dL (74-106); HDL Cholesterol 26 mg/dL (40-60); Potassium 4.0 mmol/L (3.5-5.1); Sodium 139 mmol/L (136-145); Total Protein 7.3 g/dL (6.4-8.2); Triglycerides 79 mg/dL (<=150); VLDL CHOLESTEROL 15.8 mg/dL
== END 2025-05-29 08:28 | disposition home or self-care (01) ==
PROVIDERS: PCP Nurse Practitioner; Visit Provider Nurse Practitioner
DX: Z70.0 Counseling related to sexual attitude (principal); Z78.9 Other specified health status
CPT/HCPCS: 36415; 80053; 80061; 81003; 82043; 82570; 85025

== ENCOUNTER 2025-07-31 09:50 | Outpatient (OUT) | payer BC, SELFPAY ==
--- OUTSIDE RECORDS SUMMARY | 2025-07-31 09:55 | XMS_ITS | Clinical Summary ---
Author Organization [facility] Address [address] [place] [address] Care Team Providers Care Development Vice President Name Role Phone Darlyn Paul COMPLIANCE REVIEWER Unavailable [phone] Thierno Del Toro MD Primary Care Provider [phone] Darlyn Paul COMPLIANCE REVIEWER Unavailable [phone] Allergies No known active allergies Medications MedicationSigDispense QuantityRefillsLast FilledStart DateEnd DateStatus MAGNESIUM GLYCINATE PO Take 240 mg by mouth in the morning and 240 mg before bedtime.Active lisinopril 20 MG tablet Indications:Primary hypertensionTake 1 tablet (20 mg) by mouth Daily 90 tablet 5Active rosuvastatin (Crestor) 20 MG tablet Indications:Mixed hyperlipidemiaTake 1 tablet (20 mg) by mouth at bedtime 90 tablet 5Active Active Problems ProblemNoted DateDiagnosed DateElevated jebwdxs9205/31/2025olon cancer screening 03/24/2025 Assessment & Plan (03/24/2025 [...] Patient has elected to: cologuard Adult wellness visit03/24/2025 Assessment & Plan (03/24/2025 9:28 AM EDT): Reviewed Ht/Wt/BMI Recommend eye exam yearly Recommend dental exams twice a year Balance work/leisure activities Exercises is recommended most days of the week (appropriate as chronic conditions allow) Follow up yearly and prn Scrotal mass10/21/2024 Assessment & Plan (10/21/2024 7:09 PM EST): Differentials: hernia, varicocele, hydrocele, or testicular mass Check US scrotom and send to urology pending results Class 1 obesity due to excess calories without serious comorbidity in adult 09/23/2024 [...] gained 9 pounds since 12/2023 Needs flu shot09/23/2024 Assessment & Plan (09/23/2024 9:05 AM EST): declines Primary yucalqwgvmoq34/28/2024 Assessment & Plan (03/24/2025 5:46 AM EDT): [...] Check labs Fu in 6 months Mixed zkesrsmvrxypeo12/28/2024 Assessment & Plan (03/24/2025 5:46 AM EDT): Current medication crestor Check labs yearly and prn dose changes Assessment & Plan (09/23/2024 6:34 AM EST): Current medication crestor Check labs yearly and prn dose changes Assessment & Plan (01/02/2024 9:28 AM EDT): Continue statin, check labs Participant in health and wellness plan01/02/2024 Assessment & Plan (03/24/2025 9:28 AM EDT): Labs ordered Prostate cancer whqbjvasr83/28/2024 Overview (01/09/2024): 07/2018 1.44 01/08/24 2.50 Resolved Problems ProblemNoted DateDiagnosed DateResolved DateElevated glucose level01/02/2024 09/23/2024 Assessment & Plan (01/02/2024 9:28 AM EDT): Hx of sl elevation glucose last year, never had A1c test No acute s/s DM, does have grandparent with diabetes Will check A1c test Encounters DateTypeDepartmentCare EldwOfsgecqbtsg86/25/2025Results Follow-Up [facility] [address] [place] [phone] Maria G Jacob MA ALL CBC WITH AUTO DIFF, [facility] MICROALB CREAT RATIO RANDOM, [facility] UA (CLEAN/CATCH) MICROSCOPIC IF INDICATE, Additional followed-up results: Orders Only [facility] [address] [place] [phone] Darlyn Paul NP Elevated glucose (Primary Dx)05/29/2025linisync Result Encounter [facility] External Department Unsolicited Darlyn Paul NP from Last 3 Months Social History Tobacco UseTypesPacks/DayYears UsedDateSmoking Tobacco: FormerCigarettesQuit: 2000Smokeless Tobacco: Never Tobacco Cessation:Counseling Given: Not Answered Alcohol UseStandard Drinks/WeekCommentsNot Currently0 (1 standard drink = 0.6 oz pure alcohol)caffine: coffee 1 [id number] Health LiteracyAnswerDate RecordedHow often do you need to have someone help you when you read instructions, pamphlets, or other written material from your doctor or pharmacy?Never 09/22/2024Social Connection and Isolation PanelAnswerDate RecordedIn a typical week, how many times do you talk on the phone with family, friends, or neighbors?More than three times a week09/22/2024How often do you get together with friends or relatives?Once a week09/22/2024How often do you attend yazdanism or confucianist services?1 to 4 times per year09/22/2024o you belong to any clubs or organizations such as yazdanism groups, unions, fraternal or athletic groups, or school groups?Yes09/22/2024How often do you attend meetings of the clubs or organizations you belong to?Never09/22/2024re you , , , , never , or living with a partner?Lpifmtg3709/22/2024UDIT-C AnswerDate RecordedQ1: How often do you have a drink containing alcohol?Monthly or less09/22/2024Q2: How many drinks containing alcohol do you have on a typical day when you are drinking?Patient does not drink09/22/2024Q3: How often do you have six or more drinks on one occasion?Never09/22/2024Overall Financial Resource Strain (CARDIA)AnswerDate RecordedHow hard is it for you to pay for the very basics like food, housing, medical care, and heating?Not hard at all 09/22/2024[facility] [place] [facility] - Occupational Stress QuestionnaireAnswerDate RecordedDo you feel stress - tense, restless, nervous, or anxious, or unable to sleep at night because yourmind is troubled all the time - these days?Not at all09/22/2024Exercise Vital SignAnswerDate RecordedOn average, how many days per week do you engage in moderate to strenuous exercise (like a brisk walk)?3 days09/22/2024On average, how many minutes do you engage in exercise at this level?10 min09/22/2024Hunger Vital SignAnswerDate Recorded Within the past 12 months, you worried that your food would run out before you got the money to buymore.Never true09/22/2024Within the past 12 months, the food you bought just didn't last and you didn't have money to get more.Never true 09/22/2024RAPARE - TransportationAnswerDate RecordedIn the past 12 months, has lack of transportation kept you from medical appointments or from getting medications?No09/22/2024In the past 12 months, has lack of transportation kept you from meetings, work, or from getting things needed for daily living?No 09/22/2024Housing Stability Vital SignAnswerDate RecordedIn the last 12 months, was there a time when you were not able to pay the mortgage or rent on time?No 09/22/2024In the past 12 months, how many times have you moved where you were living?t any time in the past 12 months, were you homeless or living in a usp (including now)?No09/22/2024Sex and Gender InformationValueDate RecordedSex Assigned at BirthNot on fileLegal UieQebv1312/19/2022 10:53 PM EDT Gender IdentityNot on fileSexual OrientationNot on file Last Filed Vital Signs Vital SignReadingTime TakenCommentsBlood Uynsqbhu140/78003/24/2025 8:59 AM EDT Frkds0989/18/2025 8:59 AM HHOAucjmcsqlus39.8 ??C (98.3 ??F)03/24/2025 8:59 AM EDTRespiratory Obxi134503/24/2025 8:59 AM EDTOxygen Fbixpiknrw28%03/24/2025 8:59 AM EDTInhaled Oxygen Concentration--Gkzadh489 kg (222 lb 3.2 oz)03/24/2025 8:59 AM GEDYbwhpl027.3 cm (5' 9 )10/21/2024 6:25 PM ESTBody Mass Index32.8110/21/2024 6:25 PM EST Plan of Treatment Health MaintenanceDue DateLast DoneCommentsCT Ctcstteqzjiu68/19/1972Colonoscopy 1971FIT1971FOBT1971 5980Vtjdnvlbtfyaz01/19/1972Colorectal Cancer Syhdkxneq87/08/2028FIT-DNA81, 10/09/2021, 10/09/2021Influenza VaccineDiscontinued Procedures Procedure NamePriorityDate/TimeAssociated DiagnosisCommentsLAB COLOGUARD?? COLON CANCER MWPPSUErmnzrb34/08/2025 11:30 AM EDT Colon cancer screening ALL LIPID PROFILE (FASTING)Cexrjne9705/29/2025 9:00 AM EDT [facility] CMP (CMP) (FOR REMOTE [facility] USE)Xxbwtaa3205/29/2025 9:00 AM EDT ALL CBC WITH AUTO ZUOOUlhencz50/23/2025 9:00 AM EDT [facility] UA (CLEAN/CATCH) MICROSCOPIC IF CYBTJXZXQdwxney13/23/2025 8:37 AM EDT [facility] MICROALB CREAT RATIO KUWCPPShryorz13/23/2025 8:37 AM EDT from Last 3 Months Results * Cologuard?? colon cancer screening (07/14/2025 11:30 AM EDT)ComponentValueRef RangeTest MethodAnalysis TimePerformed AtPathologist SignatureNONINV COLON CA DNA+OCC BLD SCRN STL-IWKNrlwymozFsjhjfoo60/13/2025 5:15 PM EDTEXUsherBuddy (CLIA #:[id number])Comment: The Cologuard (TM) test was performed on this specimen. NEGATIVE TEST RESULT. A negative Cologuard result indicates a low likelihood that a colorectal cancer (CRC) or advanced adenoma (adenomatous polyps with more advanced pre-malignant features) is present. The chance that a person with a negative Cologuard test has a colorectal cancer is less than 1 in 1500 (negative predictive value >99.9%) or has an advanced adenoma is less than 5.3% (negative predictive value 94.7%). These data are based on a prospective cross-sectional study of 10,000 individuals at average risk for colorectal cancer who were screened with both Cologuard and colonoscopy. (Chris Gray al, N Engl J Med 2014;370(14):2414-1423) The normal value (reference range) for this assay is negative. COLOGUARD RE-SCREENING RECOMMENDATION: Periodic colorectal cancer screening is an important part ofpreventive healthcare for asymptomatic individuals at average risk for colorectal cancer. Followinga negative Cologuard result, the [place] [employer] and U.S. Multi-Society Task Force screening guidelines recommend a Cologuard re-screening interval of 3 years. References: [place] [employer] Guideline for Colorectal Cancer Screening: https://www.cancer.or g/cancer/nwqkf-jvvvmq-dakkgy/xyucavaup-ctqrppenv-pltcayh/acs-recommendations.htm toby BLOCK, Sravanthi PIERRE, Kavon CALLES, Colorectal Cancer Screening: Recommendations for Physicians and Patients from the U.S. Multi-Society Task Force on Colorectal Cancer Screening , Am J Gastroenterology 2017; 112:3894-4970. TEST DESCRIPTION: Composite algorithmic analysis of stool DNA-biomarkers with hemoglobin immunoassay. ?? Quantitative values of individual biomarkers are not reportable and are not associated with individual biomarker result reference ranges. Cologuard is intended for colorectal cancer screening ofadults of either sex, 45 years or older, who are at average-risk for colorectal cancer (CRC). Cologuard has been approved for use by the U.S. FDA. The performance of Cologuard was established in a cross sectional study of average-risk adults aged 50-84. Cologuard performance in patients ages 45 to 49 years was estimated by sub-group analysis of near-age groups. Colonoscopies performed for a positive result may find as the most clinically significant lesion: colorectal cancer [4.0%], advanced adenoma (including sessile serrated polyps greater than or equal to 1cm diameter) [20%] or non- advanced adenoma [31%]; or no colorectal neoplasia [45%]. These estimates are derived from a prospective cross-sectional screening study of 10,000 individuals at average risk for colorectal cancer who were screened with both Cologuard and colonoscopy. (Chris Singh et al, N Engl J Med 2014;370(14):8771-0680.) Cologuard may produce a false negative or false positive result (no colorectal cancer or precancerous polyp present at colonoscopy follow up). A negative Cologuard test result does not guarantee the absence of CRC or advanced adenoma (pre-cancer). The current Cologuard screening interval is every 3 years. ([place] [employer] and U.S. Multi-Society Task Force). Cologuard performance data in a 10,000 patient pivotal study using colonoscopy as the reference method can be accessed at the following location: www.RobArt.com/results. Additional description of the Cologuard test process, warnings and precautions can be found at www.cologuard.com. Specimen (Source)Anatomical Location / LateralityCollection Method / Volume Collection TimeReceived TimeStool specimen (specimen)07/14/2025 11:30 AM EDT 07/15/2025 2:27 PM EDT Narrative Authorizing ProviderResult TypeResult StatusLisa [facility] ORDERABLESFinal ResultPerforming OrganizationAddressCity/State/ZIP CodePhone Number .[facility] (CLIA #:[id number]) [address] [id number], [facility] (CLIA #:[id number]) [address] [id number] * (ABNORMAL) [facility] CMP (CMP) (FOR REMOTE [facility] USE) (05/29/2025 9:00 AM EDT) ComponentValueRef RangeTest MethodAnalysis TimePerformed AtPathologist ZratimavfQQZHUW033861 - 145 mmol/LTBHPOTASSIUM4.03.5 - 5.1 mmol/LTBHCHLORIDE 312[address] - 107 mmol/LTBHCARBON RMJXMAX51.521.0 - 32.0 mmol/LTBHANION GAP10.5TBH BBXMKUV661(H)74 - 106 mg/dLTBHBLOOD UREA QAVKVBBU79.07.0 - 18.0 mg/dLTBH CREATININE0.980.70 - 1.30 mg/dLTBHTBH EGFR-AF GIBRALTARIAN>60>=60 mL/min/1.73m 2 TBHTBH EGFR-NON AF GIBRALTARIAN>60>=60 mL/min/1.73m 2TBHBUN CREATININE RATIO16.3 TBHCALCIUM8.98.5 - 10.1 mg/dLTBHBILIRUBIN TOTAL0.90.2 - 1.0 mg/dLTBHASPARTATE AMINO GGHEIPKQWYZ4627 - 37 U/LTBHALANINE UKZSDZNVXVVXREMU3268 - 63 U/LTBH ALKALINE JFNHBNFAPRI6553 - 116 U/LTBHTOTAL PROTEIN7.36.4 - 8.2 g/dLTBHALBUMIN LEVEL3.93.4 - 5.0 g/dLTBHGLOBULIN3.4g/dLTBHALBUMIN GLOBULIN RATIO1.1TBH Specimen (Source)Anatomical Location / LateralityCollection Method / Volume Collection TimeReceived Time05/29/2025 9:00 AM EDT05/29/2025 9:07 AM EDT Narrative [facility]NC - 05/29/2025 9:50 AM EDT Authorizing ProviderResult TypeResult StatusLisa Aichholz NPCLINISYNCFinal ResultPerforming OrganizationAddressCity/State/ZIP CodePhone Number [facility] * (ABNORMAL) ALL LIPID PROFILE (FASTING) (05/29/2025 9:00 AM EDT)ComponentValue Ref RangeTest MethodAnalysis TimePerformed AtPathologist Signature LJLWUKHVZSEPK23<=150 mg/cGRMZPIIPBEFNHRD85<=200 mg/dLTBHHDL TQGWSTQYHLS06(L)40 - 60 mg/dLTBHComment: > or =60 mg/dl - LOW CARDIOVASCULAR RISK <40 mg/dl - HIGH CARDIOVASCULAR RISK LDL CHOLESTEROL WDARFSJVXP48.0mg/dLTBHComment: <100 mg/dl OPTIMAL 100-129 mg/dl NEAR OR ABOVE OPTIMAL 130-159 mg/dl BORDERLINE HIGH 160-189 mg/dl HIGH >190 mg/dl VERY HIGH VLDL HCQDUFNGZHM24.8mg/dLTBHCHOL HDL RATIO3.8TBHComment: 3.3 - 4.4 ?? LOW RISK 4.4 - 7.1 ?? AVERAGE RISK 7.1 - 11.0 ??MODERATE RISK >11.0 HIGH RISK Specimen (Source)Anatomical Location / LateralityCollection Method / Volume Collection TimeReceived Time05/29/2025 9:00 AM EDT05/29/2025 9:07 AM EDT Narrative CLINISYNC - 05/29/2025 9:50 AM EDT Authorizing ProviderResult TypeResult StatusLisa [facility] NPCLINISYNCFinal ResultPerforming OrganizationAddressCity/State/ZIP CodePhone Number [facility] * (ABNORMAL) ALL CBC WITH AUTO DIFF (05/29/2025 9:00 AM EDT)ComponentValueRef RangeTest MethodAnalysis TimePerformed AtPathologist SignatureTBH WBC5.74.0 - 11.0 10 3/uLTBHTBH RBC5.274.70 - 6.10 10 6/uLTBHTBH HGB15.714.0 - 18.0 g/dLTBH TBH HCT46.742.0 - 54.0 %TBHTBH MCV88.680.0 - 94.0 fLTBHTBH MCH29.825.9 - 34.0 pgTBHTBH MCHC33.629.9 - 35.2 g/dLTBHTBH RDW12.411.0 - 15.0 %TBHTBH GCC957839 - 450 10 3/uLTBHTBH MPV10.29.5 - 13.5 fLTBHNEUTROPHILS PERCENT AUTO60.043.0 - 75.0 %TBHLYMPHOCYTES PERCENT AUTO24.020.5 - 60.0 %TBHMONOCYTES PERCENT AUTO 13.7(H)1.7 - 12.0 %TBHTBH EO %1.60.9 - 7.0 %TBHBASOPHILS PERCENT AUTO0.50.2 - 2.0 %TBHIMMATURE GRANULOCYTES PCT AUTO0.20.0 - 0.5 %TBHNEUTROPHILS ABSOLUTE AUTO3.41.4 - 6.5 10 3/uLTBHLYMPHOCYTES ABSOLUTE AUTO1.41.2 - 3.8 10 3/uLTBH MONOCYTES ABSOLUTE AUTO0.80.3 - 0.8 10 3/uLTBHTBH EO #0.10.0 - 0.7 10 3/uLTBH BASOPHILS ABSOLUTE AUTO0.00.0 - 0.1 10 3/uLTBHIMMATURE GRANULOCYTES ABS AUTO 0.010.00 - 0.03 10 3/uLTBHSpecimen (Source)Anatomical Location / Laterality Collection Method / VolumeCollection TimeReceived Time05/29/2025 9:00 AM EDT 05/29/2025 9:07 AM EDT Narrative [facility]YNC - 05/29/2025 9:20 AM EDT Authorizing ProviderResult TypeResult StatusLisa [facility] NPCLINISYNCFinal ResultPerforming OrganizationAddressCity/State/ZIP CodePhone Number [facility] * (ABNORMAL) [facility] UA (CLEAN/CATCH) MICROSCOPIC IF INDICATE (05/29/2025 8:37 AM EDT)ComponentValueRef RangeTest MethodAnalysis TimePerformed AtPathologist SignatureCOLOR URINEYELLOWYELLOWTBHCLARITY URINECLEARCLEARTBHSPECIFIC GRAVITY URINE1.0251.005 - 1.025TBHPH URINE5.55.0 - 9.0TBHPROTEIN URINENEGATIVE NEG/TRACE mg/dLTBHGLUCOSE URINE UANEGATIVENEGATIVE mg/dLTBHBILIRUBIN URINE NEGATIVENEGATIVETBHKETONES URINETRACE(A)NEGATIVE mg/dLTBHBLOOD URINENEGATIVE NEGATIVETBHNITRITE URINENEGATIVENEGATIVETBHUROBILINOGEN URINE0.20.2 - 1.0 EU/dLTBHLEUKOCYTE ESTERASE URINENEGATIVENEGATIVETBHURINE MICROSCOPIC INDICATED NOTBHSpecimen (Source)Anatomical Location / LateralityCollection Method / VolumeCollection TimeReceived Time05/29/2025 8:37 AM EDT05/29/2025 9:07 AM EDT Narrative CLINISYNC - 05/29/2025 9:35 AM EDT Authorizing ProviderResult TypeResult StatusLisa Aichholz NPCLINISYNCFinal ResultPerforming OrganizationAddressCity/State/ZIP CodePhone Number [facility] * [facility] MICROALB CREAT RATIO RANDOM (05/29/2025 8:37 AM EDT)ComponentValueRef RangeTest MethodAnalysis TimePerformed AtPathologist SignatureMICROALBUMIN URINE RANDOM<1.3<=30.0 mg/dLTBHCREATININE URINE UKPSFW948.9220.00 - 300.00 mg/dLTBHSpecimen (Source)Anatomical Location / LateralityCollection Method / VolumeCollection TimeReceived Time05/29/2025 8:37 AM EDT05/29/2025 9:07 AM EDT Narrative CLINISYNC - 05/29/2025 9:34 AM EDT Authorizing ProviderResult TypeResult StatusLisa Aichholz NPCLINISYNCFinal ResultPerforming OrganizationAddressCity/State/ZIP CodePhone Number [facility] from Last 3 Months Insurance Care Teams Team MemberRelationshipSpecialtyStart DateEnd Date Thierno Del Toro MD PCP - GeneralFamily Medicine01/02/24 Darlyn Paul NP Referring PhysicianNPers[facility]04/19/23 Darlyn Paul NP Nurse PractitionerThe [facility] Medicine01/02/24
--- OUTSIDE RECORDS SUMMARY | 2025-07-31 09:55 | XMS_ITS | Clinical Summary ---
Author Organization [facility] Address [address] [facility] [place] [address] Phone Care Team Providers Care Jewelry Sorter Name Role Phone Unavailable Primary Care Provider Unavailabl e Social History Tobacco UseTypesPacks/DayYears UsedDateSmoking Tobacco: Never AssessedSex and Gender InformationValueDate RecordedSex Assigned at BirthNot on fileLegal Sex Male09/01/2022 4:45 PM ESTGender IdentityNot on fileSexual OrientationNot on file Plan of Treatment Not on file
--- OUTSIDE RECORDS SUMMARY | 2025-07-31 09:55 | XMS_ITS | Clinical Summary ---
Author Organization [employer] [facility] tem Address [facility] [id number] [place] [address] Care Team Providers Care Aquatic Ecologist Name Role Phone TroyDarlyn ott ASSISTANT BASEBALL COACH-TRAFFIC RATE CLERK Primary Care Provider Social History Tobacco UseTypesPacks/DayYears UsedDateSmoking Tobacco: Never AssessedChildcare AnswerDate FhrgvtozDrstssiopAlydxgw98/13/2019EmploymentAnswerDate Recorded WweujyrdgdQaemxgu11/13/2019Purpose - LifeAnswerDate RecordedPurpose and direction in hvliTqbjzjz35/11/2021ex and Gender InformationValueDate Recorded Sex Assigned at BirthNot on fileLegal ZwpRuhm44/04/2018 9:54 AM EDTGender IdentityNot on fileSexual OrientationNot on file Plan of Treatment Health MaintenanceDue DateLast DoneCommentsDepression Dymdboavc08/19/1984Tobacco Xdlvkphym89/19/1984Adult BMI Eioxbthlj85/19/1990DTaP,Tdap and Td Vaccines (1 - Tdap)1990Zoster (Shingles) Vaccine (1 of 2)2COVID-19 Vaccine (4 - 2024- season)512/12/2020, 01/19/2021, 12/29/2020Influenza Vaccine 06/07/2025 [employer] Devices Not on file Insurance Care Teams Team MemberRelationshipSpecialtyStart DateEnd Date TroyDarlyn calvo, ASSISTANT BASEBALL COACH-TRAFFIC RATE CLERK PCP - GeneralNurse Practitioner11/17/21
--- OUTSIDE RECORDS SUMMARY | 2025-07-31 10:01 | XMS_ITS | CCD ---
Author Organization [facility] Inform ion Partnership [facility] Care Team Providers Care Substitute Teacher Name Role Phone MARQUEZ PAUL Admitting Unavailable MARQUEZ PAUL Attending Unavailable MARQUEZ PAUL Primary Care Unavailable MARQUEZ PAUL Consulting Unavailable Humberto SUPERVISOR LABOR GANG, Darlyn Unavailable Thierno Del Toro MD Primary Care Provider Humberto SUPERVISOR LABOR GANG, Darlyn Unavailable Humberto SUPERVISOR LABOR GANG, Darlyn Unavailable DARLYN PAUL Primary Care Physician Jayden BECK Attending Unavailable Jayden BECK Attending Unavailable Jayden BECK Attending Unavailable Jayden BECK Admitting Unavailable Jayden BECK Attending Unavailable Jayden BECK Admitting Unavailable Jayden Beck MD Attending Provider Darlyn Paul Primary Care Provider [phone] DARLYN PAUL Attending Unavailable DARLYN PAUL Attending Unavailable DARLYN PAUL Attending Unavailable Darlyn Paul Primary Care Unavailable Jayden Beck Attending Unavailable Jayden Beck Admitting Unavailable Allergies Allergy ClassificationReported Allergen(s)Allergy TypeDate of OnsetReaction(s) Facility (1 source)No Known Medication Allergies; Translations: [No Known Medication Allergies]Propensity to adverse reactions (disorder)[facility] Medications Current Medications MedicationDrug Class(es)DatesSig (Normalized)Sig (Original)lisinopril 20 mg oral tablet (20 sources)Angiotensin Converting Enzyme InhibitorStart: 01-09-2024 End: 48-97-0318ldrd 1 tablet by mouth once dailylisinopril 20 MG tablet Indications: Primary hypertension Take 1 tablet (20 mg) by mouth Daily 90 tablet 1 03/24/2025 06/22/2025 ActiveMagnesium glycinate (12 sources)take 240 mg by mouth in the morningMAGNESIUM GLYCINATE PO Take 240 mg by mouth in the morning and 240 mg before bedtime. Activerosuvastatin calcium 20 mg oral tablet (20 sources)HMG-CoA Reductase InhibitorStart: 01-09-2024 End: 81-94-1848swfe 1 tablet by mouth at bedtimerosuvastatin (Crestor) 20 MG tablet Indications: Mixed hyperlipidemia Take 1 tablet (20 mg) by mouth at bedtime 90 tablet 1 03/24/2025 06/22/2025 Active Problems Active Problems Problem ClassificationProblemDateDocumented DateEpisodic/ChronicDisorders of lipid metabolism (20 sources)Mixed hyperlipidemia; Translations: [Mixed hyperlipidemia]Onset: [id number] hypertension (20 sources)Essential hypertension; Translations: [Essential (primary) hypertension]Onset: 106313-76-7052EbsioltTfezg male genital disorders (1 source)Nnmkbhhafiqo85-61-5805TbnzpsvtFiedp nutritional; endocrine; and metabolic disorders (19 sources)Obesity caused by energy imbalance; Translations: [Class 1 obesity due to excess calories without serious comorbidity in adult]Onset: 09-23-2024 96-40-5977GdwkhtkOvhph screening for suspected conditions (not mental disorders or infectious disease) (20 sources)Patient encounter status; Translations: [Encounter for screening for malignant neoplasm of prostate]Onset: 686404-05-4184RhepiemaPqalgqxf codes; unclassified (1 source)Other specified health status; Translations: [OTHER SPECIFIED HEALTH STATUS]Onset: 64-42-2719Abygtwuh Past or Other Problems Problem ClassificationProblemDateDocumented DateEpisodic/ChronicDiabetes mellitus without complication (18 sources)Hyperglycemia, unspecified; Translations: [Increased glucose level] Onset: 11-10-2022 Resolved: 00-02-0859IvqffrdrTdzkqptezkbks and screening for infectious disease (10 sources)Needs influenza immunization; Translations: [Encounter for immunization]Onset: 145586-91-7767QsfgzervNxpvg male genital disorders (13 sources)Scrotal mass; Translations: [Other specified disorders of the male genital organs]Onset: 171006-47-1811GgnauyrwJvqojcto codes; unclassified (16 sources)Patient participation status; Translations: [Other specified health status]Onset: 759357-48-7480Juyhkdpd Results Test NameValueInterpretationReference RangeFacilityALL CBC WITH AUTO DIFFon 94-10-2316RFMPFOJWH ABSOLUTE LEGN8QTFI HealthcareBasophils/100 WBC (Bld)0.5 %0.2 - 2.0 %NOMS HealthcareEosinophils/100 WBC (Bld)1.6 %0.9 - 7.0 %[facility] Erythrocyte distribution width (RBC) [Ratio]12.4 %11.0 - 15.0 %[facility] Hematocrit (Bld) [Volume fraction]46.7 %42.0 - 54.0 %[facility] CenterHemoglobin (Bld) [Mass/Vol]15.7 g/dL14.0 - 18.0 g/dLNOIN HealthcareIMMATURE GRANULOCYTES ABS AUTO0.01NOMS HealthcareImmature granulocytes/100 WBC (Bld)0.2 %0.0 - 0.5 % [facility] CenterInterpretation and review of laboratory resultsAbnormalNOIN HealthcareLYMPHOCYTES ABSOLUTE AUTO1.4NOMS HealthcareLymphocytes/100 WBC (Bld)24 %20.5 - 60.0 %[facility] CenterMCH (RBC) [Entitic mass]29.8 pg25.9 - 34.0 pgNOCox MonettHC (RBC) [Mass/Vol]33.6 g/dL29.9 - 35.2 g/dLWestern Missouri Medical CenterMCV (RBC) [Entitic vol]88.6 fL80.0 - 94.0 fLNOLafayette Regional Health CenterMONOCYTES ABSOLUTE AUTO0.8NOMS HealthcareMonocytes/100 WBC (Bld)13.7 %High1.7 - 12.0 %[facility]OMSaint [facility] NEUTROPHILS ABSOLUTE AUTO3.4NOMS HealthcareNeutrophils/100 WBC (Bld)60 %43.0 - 75.0 %[facility]OMS HealthcarePlatelet mean volume (Bld) [Entitic vol]10.2 fL9.5 - 13.5 fLNOMS HealthcareTB EO #0.1NOMS HealthcareTBH EXQ558PNWT HealthcareTBH RBC5.27 NOMS HealthcareTBH WBC5.7NOMS HealthcareCLINISYNCNOMS HealthcareMR prostate wo/w conon 26-91-9614TP prostate wo/w [facility] [place] [address] [place] [address] MRI Report Signed Patient: Jen Lopez MR#: [id number] : 1970 Acct:[id number] Age/Sex: 54 / M ADM Date: 03/15/25 Loc: MR Room: Type: [facility] Attending Dr: Jayden Beck MD Copies to: [...] changes. Impression dictated by: Festus Mendoza Jr., D.OYumiko 03/16/2025 9:36 AM Dictation Location: [facility]--23 Transcribed By: [facility] 03/16/25 0936 Dictated By: Festus Mendoza Jr, DO 03/16/25 0932 Signed By: 03/16/25 0936[facility] Physician GroupAmbulatory Visit Summaryon 16-47-7178Hcdipjvjuv Visit SummaryAmbulatory Visit Summary JEN LOPEZ :1970 Visit Date:01/11/2025 [...] Jayden BECK MD Where: [facility] [address] [place] [address]- You Need to Schedule the Following Appointments Follow Up with Jayden BECK MD, URL When: Comments: 1 yr w/ PSA Where: [facility] [address], [place] [address]- [phone] You Need to Complete the Following PSA Total, Blood, Routine collect, 01/11/25, Order for future visit, Lab Collect, Elevated PSA, Print Label By Order Location Medications What How Much When Instructions Unchanged lisinopril (lisinopril 20 mg Tab) 1 Tablets Contact prescribing physician if questions orconcerns Unchanged rosuvastatin (rosuvastatin 20 mg Tab) 1 [...] provider. Document Revised: 07/08/2023 Document Reviewed: 07/08/2023 ElseArkami Patient Education ??? 2023 [facility] Spermatocele A spermatocele is a fluid-filled sac (cyst) inside the sac that holds the testicles (scrotum). Thistype of cyst often forms in the epididymis. [...] In most cases, small (more content not included)...[facility] SystemAmbulatory Visit SummaryAmbulatory Visit Summary JEN LOPEZ :1970 Visit Date:01/11/2025 [...] Follow Up with RHONDA PEDRO, Jayden Matos, URL When: Comments: 1 yr w/ PSA Where: [facility] [address] [place] [address]- [phone] You Need to Complete the Following PSA Total, Blood, Routine collect, 01/11/25, Order for future visit, Lab Collect, Elevated PSA, Print Label By Order Location Medications What How Much When Instructions Unchanged lisinopril (lisinopril 20 mg Tab) 1 Tablets Contact prescribing physician if questions orconcerns Unchanged rosuvastatin (rosuvastatin 20 mg Tab) 1 [...] provider. Document Revised: 07/08/2023 Document Reviewed: 07/08/2023 ElseArkami Patient Education ??? 2023 [employer]. Spermatocele A spermatocele is a fluid-filled sac (cyst) inside the sac that holds the testicles (scrotum). Thistype of cyst often forms in the epididymis. [...] How is this diagnosed (more content not included)...[facility] SystemAmbulatory Visit SummaryAmbulatory Visit Summary JEN LOPEZ :1970 Visit Date:01/11/2025 [...] Following Appointments Follow Up with RHONDA PEDRO, Jyaden Matos, URL When: Comments: 1 yr w/ PSA Where: [facility] [address] , [place] [address] [phone] You Need to Complete the Following PSA Total, Blood, Routine collect, 01/11/25, Order for future visit, Lab Collect, Elevated PSA, Print Label By Order Location Medications What How Much When Instructions Unchanged lisinopril (lisinopril 20 mg Tab) 1 Tablets Contact prescribing physician if questions orconcerns Unchanged rosuvastatin (rosuvastatin 20 mg Tab) 1 [...] Reviewed: 07/08/2023 Elsevier Patient Education ??? 2023 [employer]. Spermatocele A spermatocele is a fluid-filled sac (cyst) inside the sac that holds the testicles (scrotum). Thistype of cyst often forms in the epididymis. [...] How is this diagnosed (more content not included)...NormalKettering Health TroyCHEMISTRYOrdered By: SYSTEM SYSTEM on 52-63-3501Vywdonen specific Ag [Mass/Vol]2.5 ng/mLNormal0.1 - 3.5 ng/mLRemisol ChemComment on above: Interpretive Data: The concentration of PSA determined by different manufacturers can vary due to differences in assay methods and reagent specificity. Values obtained from different assay methods cannot be used interchangeably. The methodology used for this result was chemiluminescence using Fernando Buffalo's Access Hybritech PSA reagent.PSA Totalon 01-11-2025 Prostate specific Ag [Mass/Vol]2.5 ng/mLNormal0.1-3.5[facility] Comment on above:Result Comment: The concentration of PSA determined by different manufacturers can vary due to differences in assay methods and reagent specificity. Values obtained from different assay methods cannot be used interchangeably. The methodology used for this result was chemiluminescence using Fernando Beatriz's Access Hybritech PSA reagent.Performed By: #### [id number] #### Sean [facility] [address] [place], [place] [address]Queezmc Office/Clinic Noteon 71-44-8838Rgjkizp Office/Clinic NoteUrology Office/Clinic Note Chief Complaint scrotal mass HPI [...] 54 yo male new pt referred by Darlyn Paul NP for scrotal mass. IPSS 2. [...] is required unless there is an increase insize and becomes more bothersome. -Cont regular self-exams [...] Jayden Matos, URL [facility] [address] , [place] [address]- [phone] Additional Instructions: 1 yr w/ PSA Patient [...] Protein Urine Dipstick: Negative (01/11/25 10:20:00) Specific [place] Urine Dipstick: 1.025 (01/11/25 10:20:00) Urine Appearance Urine Dipstick: Clear (01/11/25 10:20:00) Urine (more content not included)...[facility] SystemComment on above:Result Comment: Electronically Signed By: Jayden BECK MD\.br\Date and Time Signed: 01/11/25 11:16 EDT\.br\Electronically Co-Signed By: Ling Card.br\Date and Time Co-Signed: 01/11/25 11:12 EDTUS Scrotum and testicleon 56-41-0138[place] [address] Ultrasound Report Signed Patient: JEN LOPEZ MR#: [id number] : 1970 Acct:[id number] Age/Sex: 53 / M ADM Date: 11/07/24 Loc: US Attending Dr: Darlyn Paul NP Ordering Physician: Darlyn Paul NP Date of Service: 11/07/24 Procedure(s): US scrotum Accession Number(s): [id number] cc: Darlyn Paul NP [place] [id number] Patient Name: JEN LOPEZ MRN: [id number] date: 1970 Sex: M Assigned Patient Location: [place] Current Patient Location: Accession/Order Number: [id number] Exam Date: 11/07/2024 09:15 Report Date: 11/11/2024 [...] Signed By: 11/11/24 1145 DD/ 1143 TD/TT: Code Official:TBHRadiology, Radiologist, - 11/11/2024 [place] [address] Ultrasound Report Signed Patient: JEN LOPEZ MR#: [id number] : 1970 Acct:[id number] Age/Sex: 53 / M ADM Date: 11/07/24 Loc: US Attending Dr: Darlyn Paul NP Ordering Physician: Darlyn Paul NP Date of Service: 11/07/24 Procedure(s): US scrotum Accession Number(s): [id number] cc: Darlyn Paul NP [facility] [place] [address] Patient Name: JEN LOPEZ MRN: [id number]:[id number] date: 1970 Sex: M Assigned Patient Location: Current Patient Location: Accession/Order Number: [id number] Exam Date: 11/07/2024 09:15 Report Date: 11/11/2024 [...] Signed By: 11/11/24 1145 DD/ 1143 TD/TT: Code Official: JULIANNA HealthcareRadiology Study observation (narrative)[facility] HealthcareUS Scrotum and testicleOrdered By: Radiologist Radiology on 71-52-4041NBXIWestern [facility] Medical Center Work Phone: cbc AUTO DIFFon 53-79-8299HRDE #0.0 103/ulNormal 0.0-0.1[facility] HospitalComment on above:Performed By: #### CBC #### [facility] [address] [place] [address] Dr. Bertha DuranBasophils/100 WBC (Bld)0.7 %Normal0.2-2.0[facility] Comment on above:Performed By: #### CBC #### [facility] [address] [address] [address] Bertha Thornton #0.1 103/ulNormal0.0-0.7The [facility] TroyComment on above: Performed By: #### CBC #### [facility] [address] [place] [address] Dr. Bertha Simonosinophils/100 WBC (Bld)1.7 %Normal0.9-7.0[facility] Comment on above:Performed By: #### CBC #### [facility] [address] [place] [address] Dr. Bertha Simonrythrocyte distribution width (RBC) [Ratio]12.1 %Lwzkou66.0-15.0 The [facility] Health TroyComment on above:Performed By: #### CBC #### [facility] [address] [place] [address] Dr. Bertha DuranHematocrit (Bld) [Volume fraction]51.0 %Uujfch02.0-54.0The [facility] Health TroyComment on above:Performed By: #### CBC #### [facility] [address] [place] [address] Dr. Bertha DuranHemoglobin (Bld) [Mass/Vol]16.2 g/qGOtklcg44.0-18.0The [facility] TroyComtr[facility] health [facility] on above:Performed By: #### CBC #### [facility] [address] [place] [address] Dr. Bertha Encarnacion #0.02 10e3/ulNormal0.00-0.03The [facility] TroyComment on above:Performed By: #### CBC #### [facility] [address] [place] [address] Dr. Bertha Encarnacion %0.3 %Normal0.0-0.5The [facility] TroyComtr[facility] health [facility] on above: Performed By: #### CBC #### [facility] [address] [place] [address] Dr. Bertha MayorgaH #2.0 103/ulNormal1.2-3.8The [facility] Health TroyComment on above:Performed By: #### CBC #### [facility] [address] [place] [address] Dr. Bertha Guerreromphocytes/100 WBC (Bld)34.5 %Blicpu26.5-60.0The [facility] TroyComtr[facility] health [facility] on above:Performed By: #### CBC #### [facility] [address] [place] [address] Dr. Bertha LuceroUAL DIFF REQNONormalThe [facility] TroyComment on above: Performed By: #### CBC #### [facility] [address] [place] [address] Dr. Bertha Deleon (RBC) [Entitic mass]28.5 umCvckur39.9-34.0The [facility] TroyComment on above:Performed By: #### CBC #### [facility] [address] [place] [address] Dr. Bertha Deleon (RBC) [Mass/Vol]31.8 g/qOYfriqn82.9-35.2The [facility] TroyComment on above:Performed By: #### CBC #### [facility] [address] [place] [address] Dr. Bertha Deleon (RBC) [Entitic vol]89.8 uFSnzjhs64.0-94.0The [facility] TroyComment on above:Performed By: #### CBC #### [facility] [address] [place] [address] Dr. Bertha Vora #0.4 103/ulNormal0.3-0.8The [facility] TroyComment on above:Performed By: #### CBC #### [facility] [address] [place] [address] Dr. Bertha Nortonocytes/100 WBC (Bld)6.3 %Normal1.7-12.0The [facility] Comment on above:Performed By: #### CBC #### [facility] [address] [place] [address] Dr. Bertha Pope #3.4 103/ulNormal1.4-6.5The [facility] TroyComment on above:Performed By: #### CBC #### [facility] [address] [place] [address] Dr. Bertha Bishoputrophils/100 WBC (Bld)56.5 %Uxoinn98.0-75.0The [facility] TroyComment on above:Performed By: #### CBC #### [facility] [address] [place] [address] Dr. Bertha Bosslet mean volume (Bld) [Entitic vol]10.2 fLNormal9.5-13.5The [facility] TroyComment on above:Performed By: #### CBC #### [facility] [address] [address] [address] Bertha TopeteT215 103/fjYoyxcd632-943OgwMercy Memorial HospitalComment on above: Performed By: #### CBC #### [facility] [address] [address] [address] Bertha DuranRBC5.68 106/ulNormal4.70-6.10The [facility] TroyComment on above:Performed By: #### CBC #### [facility] [address] [place] [address] Dr. Bertha DuranWBC5.9 103/ulNormal4.0-11.0The [facility] TroyComment on above: Performed By: #### CBC #### [facility] [address] [place] [address] Dr. Bertha GreenID PROFILEon 98-64-2264IFTR-HDL RATIO NORMSClinton Memorial HospitalComtrinity health [facility]onia on above:Result Comment: 3.3 - 4.4 LOW RISK 4.4 - 7.1 AVERAGE RISK 7.1 - 11.0 MODERATE RISK >11.0 HIGH RISKPerformed By: #### CMP, LIPID #### [facility] [address] [place] [address] Dr. Bertha rKauseol [Mass/Vol]120 mg/dLNormal<=200[facility] Comment on above:Performed By: #### CMP, LIPID #### [facility] [address] [place] [address] Dr. Bertha Larsonesterol in HDL [Mass/Vol]22 mg/dLCritically xnq36-59Wdw [facility] TroyCom[facility] on above:Performed By: #### CMP, LIPID #### [facility] [address] [place] [address] Dr. Bertha Larsonesterol in LDL [Mass/Vol]67.4 mg/dLUniversity Hospitals St. John Medical CenterComtrinity health [place]onia on above:Performed By: #### CMP, LIPID #### [facility] [address] [place] [address] Dr. Yilan ChangCholesterol.total/Cholesterol in HDL [Mass ratio]5.5 {ratio} NormalThe [facility] TroyComment on above:Performed By: #### CMP, LIPID #### [facility] [address] [place] [address] Dr. Bertha Lerma NORMAL> or = 60 mg/dl - LOW CARDIOVASCULAR RISK <40 mg/dl - HIGH CARDIOVASCULAR RISKUniversity Hospitals St. John Medical CenterComment on above:Performed By: #### CMP, LIPID #### [facility] [address] [place] [address] Dr. Bertha DuranLDL CALC NORMALSEE BELOWUniversity Hospitals St. John Medical CenterComment on above:Result Comment: <100 mg/dl OPTIMAL 100 - 129 mg/dl NEAR OR ABOVE OPTIMAL 130 - 159 mg/dl BORDERLINE HIGH 160 - 189 mg/dl HIGH >190 mg/dl VERY HIGH Performed By: #### CMP, LIPID #### [facility] [address] [place] [address] Dr. Bertha DuranTriglyceride [Mass/Vol]153 mg/dLCritically high<=150The [facility] TroyComtrinity health [facility] on above:Performed By: #### CMP, LIPID #### [facility] [address] [place] [address] Dr. Bertha DuranVLDL CALC30.6 mg/dLNoWyandot Memorial HospitalComtrinity health livonia on above: Performed By: #### CMP, LIPID #### [facility] [address] [place] [address] Dr. Bertha DuranPROF 14(COMP METB)on 77-75-1240Hvtjyrm [Mass/Vol]4.4 g/dLNormal 3.4-5.0The [facility] TroyComment on above:Performed By: #### CMP, LIPID #### [facility] [address] [place] [address] Dr. Bertha DuranAlbumin/Globulin [Mass ratio]1.3 {ratio}NormalThe [facility] TroyComment on above:Performed By: #### CMP, LIPID #### [facility] [address] [place] [address] Dr. Yilan ChangALP [Catalytic activity/Vol]72 U/ABfmqkh92-691Pis [facility] TroyComment on above:Performed By: #### CMP, LIPID #### [facility] [address] [place] [address] Dr. Bertha Lara [Catalytic activity/Vol]59 U/HRoyejb76-15Zfl [facility] TroyComment on above:Performed By: #### CMP, LIPID #### [facility] [address] [place] [address] Dr. Bertha Nietoon gap [Moles/Vol]12.3 mmol/LNormalMercy Memorial Hospital Comment on above:Performed By: #### CMP, LIPID #### [facility] [address] [place] [address] Dr. Bertha Willams [Catalytic activity/Vol]31 U/YXoqdhj96-39Euu [facility] TroyComment on above:Performed By: #### CMP, LIPID #### [facility] [address] [place] [address] Dr. Bertha DuranBilirubin [Mass/Vol]1.2 mg/dLCritically high0.2-1.0The [facility] TroyComment on above:Performed By: #### CMP, LIPID #### [facility] [address] [place] [address] Dr. Bertha DuranCalcium [Mass/Vol]9.6 mg/dLNormal8.5-10.1[facility] Comment on above:Performed By: #### CMP, LIPID #### [facility] [address] [place] [address] Dr. Bertha DuranChloride [Moles/Vol]102 mmol/TPiwalb91-253SgxMercy Memorial Hospital Comment on above:Performed By: #### CMP, LIPID #### [facility] [address] [place] [address] Dr. Bertha DuranCO2 [Moles/Vol]29.2 mmol/JCtsimw44.0-32.0The [facility] Comment on above:Performed By: #### CMP, LIPID #### [facility] [address] [place] [address] Dr. Yilan ChangCreatinine [Mass/Vol]1.05 mg/dLNormal0.70-1.30The [facility] TroyComment on above:Performed By: #### CMP, LIPID #### [facility] [address] [place] [address] Dr. Bertha SimonGFR-AF CITIZEN OF [place]>60Normal>=60The [facility] TroyComment on above:Performed By: #### CMP, LIPID #### [facility] [address] [address] [address] Bertha SimonGFR-NON AF CITIZEN OF [place]>60Normal>=60The [facility] TroyComment on above:Performed By: #### CMP, LIPID #### [facility] [address] [place] [address] Dr. Bertha DuranGlobulin (S) [Mass/Vol]3.3 g/dLNormalThe [facility] TroyComment on above:Performed By: #### CMP, LIPID #### [facility] [address] [place] [address] Dr. Bertha DuranGlucose [Mass/Vol]117 mg/dLCritically ayyt19-573Uie [facility] TroyComment on above:Performed By: #### CMP, LIPID #### [facility] [address] [place] [address] Dr. Bertha DuranPotassium [Moles/Vol]4.5 mmol/LNormal3.5-5.1The [facility] Comment on above:Performed By: #### CMP, LIPID #### [facility] [address] [place] [address] Dr. Bertha DuranProtein [Mass/Vol]7.7 g/dLNormal6.4-8.2The [facility] Comment on above:Performed By: #### CMP, LIPID #### [facility] [address] [place] [address] Dr. Bertha DuranSodium [Moles/Vol]139 mmol/KNamiwj520-405Jes [facility] Comment on above:Performed By: #### CMP, LIPID #### [facility] [address] [place] [address] Dr. Bertha DuranUrea nitrogen [Mass/Vol]18.0 mg/dLNormal7.0-18.0Mer[facility] Memorial HospitalComment on above:Performed By: #### CMP, LIPID #### [facility] [address] [address] [address] Bertha Mahan nitrogen/Creatinine [Mass ratio]17.1 mg/mgNoalThe [facility] TroyComment on above:Performed By: #### CMP, LIPID #### [facility] [address] [address] [address] Bertha Shirley RANDOM W/MICROSCOPICon 34-73-8685SRIMJVFRKBKK SEENNormalNONE SEENMercy Memorial HospitalComment on above:Performed By: #### UAMIC #### [facility] [address] [place] [address] Dr. Bertha Diop Ql (U)NegativeNormalNEGATIVEThe [facility] Comment on above:Performed By: #### UAMIC #### [facility] [address] [address] [address] Bertha DuranCASTNONE SEENNormalNONE SEENMercy Memorial HospitalComtrinity health [place] on above:Performed By: #### UAMIC #### [facility] [address] [address] [address] Bertha Lomax (U)CLEARNormalCLEARMercy Memorial HospitalComtrinity health livonia on above: Performed By: #### UAMIC #### [facility] [address] [address] [address] Bertha Pacheco (U)YELLOWNormalYELLOWMercy Memorial HospitalComment on above: Performed By: #### UAMIC #### [facility] [address] [place] [address] Dr. Bertha Acuña LM Nom (Urine sed)NONE SEENNormalNONE SEENMercy Memorial HospitalComtrinity health [place] on above:Performed By: #### UAMIC #### [facility] [address] [place] [address] Dr. Stone ChangEpithelial cells LM Ql (Urine sed)FEWAbnormalNONE SEEN /RAREThe Witten HospitalComment on above:Performed By: #### UAMIC #### [facility] [address] [address] [address] Bertha DuranGlucose Ql (U)NegativeNormalNEGATIVEMercy Memorial HospitalComment on above:Performed By: #### UAMIC #### [facility] [address] [address] [address] Bertha DuranHemoglobin Ql (U)NegativeNormalNEGATIVEThe [facility] on above:Performed By: #### UAMIC #### [facility] [address] [address] [address] Bertha DuranKetones Ql (U)NegativeNormalNEGATIVEMercy Memorial HospitalComment on above:Performed By: #### UAMIC #### [facility] [address] [address] [address] Bertha DuranLEUKOCYTESNegativeNormalNEGATIVEThe [facility] TroyComment on above:Performed By: #### UAMIC #### [facility] [address] [address] [address] Bertha RodriguezCOUSSMALLAbnormalNONE SEENMercy Memorial HospitalComment on above:Performed By: #### UAMIC #### [facility] [address] [address] [address] Bertha DuranNitrite Ql (U)NegativeNormalNEGATIVEMercy Memorial HospitalComment on above:Performed By: #### UAMIC #### [facility] [address] [place] [address] Dr. Bertha DuranpH (U)5.0 [pH]Normal5-9The [facility] TroyComment on above: Performed By: #### UAMIC #### [facility] [address] [address] [address] Bertha DuranRBCNONE SEENAbnormal0-2The [facility] TroyComment on above: Performed By: #### UAMIC #### [facility] [address] [address] [address] Bertha DuranSPEC GRAVITY>=1.798Imxvcemi0.005-<=1.025The [facility] Comment on above:Performed By: #### UAMIC #### [facility] [address] [address] [address] Bertha Shirley PROTEINNegativeNormalNEGATIVE/ TRACEThe [facility] Comment on above:Performed By: #### UAMIC #### [facility] [address] [address] [address] Bertha DuranUrobilinogen Qn (U)0.2 {Queta'U}/dLNormal0.2 - 1.0Mercy Memorial HospitalComment on above:Performed By: #### UAMIC #### [facility] [address] [address] [address] Bertha DuranWBCNONE SEENNormalNONE SEENThe [facility] TroyComment on above: Performed By: #### UAMIC #### [facility] [address] [place] [address] Dr. Bertha DuranDermatopathologyon [phone]ld [facility] D[facility] Laboratory [address] [place] [phone] DERMATOPATHOLOGY REPORT Name:JEN LOPEZ [facility] Rec #. [id number] Location: [facility] Date of Procedure: 04/26/2020 Race: Date [...] M.D. Electronically Signed Out By STEVEN TILLMAN MD/[facility] By the signature on this report, the individual or group listed as making the Final Interpretation/Diagnosis certifies that they have reviewed this case. 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 1.0 x 0.8 cm. Shave Biopsy. Specimens Submitted As: A: SKIN, R CHEST Gross Description: Received in formalin is one dickinson-brown piece of skin measuring 2e1x8nu. The specimen is inked and embedded in toto. [facility]/04/29/2020[facility] SystemComment on above:Performed By: #### D #### Dermatopathology Vital Signs Date TimeVital SignValuePerforming VcflsfyesDfwuqziw69-37-0989 08:59-0400Body mass index (BMI) [Ratio]32.81 kg/m2Darlyn Paul [employer] Work Phone: [facility] CenterMobbeuhiyq41-89-0732 08:59-0400Body temperature 98.29 [degF]Darlyn Escotoregina [employer] Work Phone: [facility] CenterYdhxcmdwem64-47-4649 08:59-0400Body .79 kgDarlyn Escotoz [employer] Work Phone: [facility] CenterBxvptxptfc33-76-4385 08:59-0400Diastolic blood fxzjrzyt11 mm[Hg]Darlyn Paul [employer] Work Phone: [facility] CenterBxjmksoyjh44-18-4506 08:59-0400Heart rate72 /min Darlyn Paul [employer] Work Phone: [facility] CenterWpzrzxupfb52-31-3874 08:59-0400Respiratory rate18 /minDarlyn Escotoz [employer] Work Phone: [facility] CenterCtzweektmp72-36-7786 08:59-8038NbE9% (BldA) [Mass fraction]97 %Darlyn Paul [employer] Work Phone: AdstrixLafayette [facility] Health CenterGorhxtxgbm97-40-2358 08:59-0400Systolic blood qlzuzxpw529 mm[Hg]Darlyn Escotoz [employer] Work Phone: [facility] CenterBropzibcwo40-47-6875 18:25-0500Body tznbug559.3 cmLisa Humberto [employer] Work Phone: [facility] CenterDoogicvdue65-95-6139 18:25-0500Body mass index (BMI) [Ratio]32.49 kg/m2Lisa Tigistz [employer] Work Phone: [facility] CenterFwcfetgjch20-71-7821 18:25-0500Body temperature 98.49 [degF]Darlyn Humberto [employer] Work Phone: [facility] CenterJhmytbalae12-79-9441 18:25-0500Body jyuqrn37.79 kgLisa Humberto [employer] Work Phone: [facility] CenterAlosebykce75-38-7954 18:25-0500Diastolic blood kfbkxolb55 mm[Hg]Darlyn Humberto [employer] Work Phone: [facility] CenterKoxlyzlijk92-25-4996 18:25-0500Heart rate83 /min Darlyn Humberto [employer] Work Phone: [facility] CenterOthfiefbwh72-53-2193 18:25-0500Respiratory rate18 /minLisa Paul [employer] Work Phone: [facility] CenterUnhzctgfft90-19-5654 18:25-3368PfW8% (BldA) [Mass fraction]98 %Darlyn Humberto [employer] Work Phone: [facility] CenterTovjlfcaoc22-77-2491 18:25-0500Systolic blood hkawidlm853 mm[Hg]Darlyn Tigistz [employer] Work Phone: [facility] CenterNjdwyebawd76-43-8212 08:41-0500Body memouv202.3 Terraisa Humberto [employer] Work Phone: [facility] CenterLnikyhktok52-39-8636 08:41-0500Body mass index (BMI) [Ratio]32.81 kg/m2Ioanasa Tigistz [employer] Work Phone: [facility] CenterAqzruyhzay29-16-9404 08:41-0500Body temperature 98.29 [degF]Darlyn Humberto [employer] Work Phone: [phone] [place], [place] [address]Aasonhlwch34-82-7481 08:41-0500Body boluks677.79 kgLisa Urbinaholz [employer] Work Phone: noLafayette Regional Health CenterUlfkhayykp01-49-5479 08:41-0500Diastolic blood lofpwgoo87 mm[Hg]Darlyn Escotoz [employer] Work Phone: [facility] Rmidyxemys27-31-6073 08:41-0500Heart rate72 /min Darlyn Carlitosholz [employer] Work Phone: noLafayette Regional Health CenterEswtspsyix99-74-4228 08:41-0500Respiratory rate18 /minLisa Simmonshholz SUPER[employer]OR [employer] Work Phone: noLafayette Regional Health CenterPcitktgjho48-08-0369 08:41-5528EwR2% (BldA) [Mass fraction]97 %Darlyn Urbinaholz [employer] Work Phone: noLafayette Regional Health CenterZngxzqmpsf40-37-8810 08:41-0500Systolic blood bilnfpqw789 mm[Hg]Darlyn Escotoz [employer] Work Phone: [facility] Encounters Encounter DateEncounter TypeCare ProviderFacilityStart: 59-09-2507ibvctedcju Jayden Matos WATERSFacility:EU BellevueStart: 05-29-2025 End: 33-44-5909Dsrcpjzbu Result EncounterLisa Carlitosholz [employer] Work Phone: [facility] External Department UnsolicitedStart: 05-29-2025 End: 66-92-0188Rdwbsibay Result EncounterLisa Carlitosholz [employer] Work Phone: [facility] External Department UnsolicitedStart: 03-24-2025 End: 88-53-7084Dogcbr flowsheetLisa Aichholz [employer] Work Phone: [facility] FMStart: 03-24-2025 End: 99-51-2393Ucuhwt flowsheetLisa Aichholz [employer] Work Phone: [facility] FMStart: 03-24-2025 End: 83-78-8227Shhqbqm encounter statusLisa Aichholz [employer] Work Phone: noms HealthcareStart: 03-24-2025 End: 71-32-5324Dgijwjbg preventive med est patient 40-64yrsLisa Paul [employer] Work Phone: [facility] CWM FMComment on above:Adult wellness visit (Primary Dx); Primary hypertension ; Class 1 obesity due to excess calories without serious comorbidity with body mass index (BMI) of 30.0 to 30.9 in adult; Mixed hyperlipidemia ; Participant in health and wellness plan; Colon cancer screeningStart: 03-24-2025 End: 62-84-9925rejrjpjqqxZEZF AICHHOLZNot AvailableStart: 03-15-2025 End: 41-97-1655Mcywtjy encounter procedureDarlyn Paul Work Phone: [facility] [place] Work Phone: Start: 03-15-2025 End: 50-54-5317dvevefbfqhVvfi J Aichholz Work Phone: [facility] Work Phone: Start: 01-11-2025 End: 40-34-8143Cnm Drop offJayden BECK [facility] Start: 01-11-2025 End: 56-95-2304OmaircYzpn Aichholz [employer] Work Phone: [facility] CWM FMComment on above:Primary hypertension (CMS/HCC); Mixed hyperlipidemia (CMS/HCC)Start: 11-11-2024 End: 33-25-1663Ngplkoznd Result EncounterLi Humberto [employer] Work Phone: [facility] External Department UnsolicitedStart: 11-11-2024 End: 45-28-8842Nkzrnorti Result EncounterLisa Humberto [employer] Work Phone: [facility] External Department UnsolicitedStart: 11-11-2024 End: 00-28-7166Pgmyfr OnlyLisa Aichholz [employer] Work Phone: [facility] FMComment on above:Scrotal mass (Primary Dx) Start: 10-21-2024 End: 09-97-2350Hxleue outpatient visit 25 minutesLisa Aichholz [employer] Work Phone: [facility] FMComment on above:Scrotal mass (Primary Dx); Class 1 obesity due to excess calories without serious comorbidity with body mass index (BMI) of 30.0 to 30.9 in adultStart: 10-21-2024 End: 07-47-3171arugfzirzoBFGB AICHHOLZNot AvailableStart: 10-21-2024 End: 31-36-6272Pvfkzx flowsheetLisa Aichholz [employer] Work Phone: [facility] FMStart: 10-21-2024 End: 48-23-9024Hkszpu flowsheetLisa Aichholz [employer] Work Phone: [facility] FMStart: 09-23-2024 End: 20-43-1666Dclhgu flowsheetLisa Aichholz [employer] Work Phone: [facility] FMStart: 09-23-2024 End: 29-78-5290Rbqoby flowsheetLisa Aichholz [employer] Work Phone: [facility] FMStart: 09-23-2024 End: 72-40-4625Aoldhw outpatient visit 25 minutesLisa Aichholz [employer] Work Phone: [facility] C[facility] FMComment on above:Primary hypertension (CMS/HCC) (Primary Dx); Mixed hyperlipidemia (CMS/HCC); Class 1 obesity due to excess calories without serious comorbidity with body mass index (BMI) of 30.0 to 30.9 in adultStart: 09-23-2024 End: 22-17-0953efutwbtnmaVLTX AICHHOLZNot AvailableStart: 06-19-2024 End: 53-67-6307RpjmiwPyph Aichholz [employer] Work Phone: [facility] FMComment on above:Mixed hyperlipidemia (CMS/HCC); Primary hypertension (CMS/HCC)Start: 11-10-2022 End: 55-29-5835yhvetmdddqFCT DARLYN PAULFacility:H1 Procedures DateProcedureProcedure DetailPerforming ClinicianStart: 95-02-6091OHU CBC WITH AUTO DIFFLisa Humberto [employer] Work Phone: Start: 47-46-7791Cv scrotum & contentsLisa Humberto [employer] Work Phone: VasectomyPatrick BECK Plan of Treatment DateCare ActivityDetailAuthorStart: 09-23-2025 End: 16-37-2040Bzcjjzt encounter ixqebrgek32/18/2025 9:20 AM EST Office Visit [facility] [address] [place] [phone] Darlyn Paul, [employer] [address] [place] [address] [facility] FMStart: 03-24-2025 End: 60-57-3183ZIW W Auto Differential panel - BloodCBC and differential Lab Routine Participant in health and wellness plan Expected: 03/24/2025 (Appro ximate), Expires: 03/24/2026[facility] Work Phone: Comment on above:Expected: 03/24/2025 (Approximate), Expires: 03/24/2026Start: 03-24-2025 End: 93-31-2175Gjbfvuoobessx metabolic 2000 panel - Serum or PlasmaComprehensive metabolic panel Lab Routine Participant in health and wellness plan Expected: 03/24/2025 (Approximate), Expires: 03/24/2026NO[facility] HealthcareComment on above: Expected: 03/24/2025 (Approximate), Expires: 03/24/2026Start: 03-24-2025 End: 28-71-1341Nlwck 1996 panel - Serum or PlasmaLipid panel Lab Routine Participant in health and wellness plan Expected: 03/24/2025 (Approximate), Expires: 03/24/2026[facility] HealthcareComment on above:Expected: 03/24/2025 (Approximate), Expires: 03/24/2026Start: 03-24-2025 End: 07-92-1369Xmnnmsdnhdbw/Creatinine panel in random UrineMicroalbumin / creatinine, urine ratio Lab Routine Participant in health and wellness plan Expected: 03/24/2025 (Approximate), Expires: 03/24/2026NO[facility] HealthcareComment on above:Expected: 03/24/2025 (Approximate), Expires: 03/24/2026Start: 03-24-2025 End: 71-52-1385Mwstcbukrui colorectal cancer DNA and occult blood screening [Presence] in StoolCologuard colon cancer screening Lab Routine Colon cancer screening Expected: 03/24/2025 (Approximate), Expires: 03/24/2026[facility] Comment on above:Expected: 03/24/2025 (Approximate), Expires: 03/24/2026Start: 03-24-2025 End: 58-50-0674Ebqwsztbns complete panel - UrineUrinalysis with reflex microscopic (clean catch) Lab Routine Participant in health and wellness plan Expected: 03/24/2025 (Approximate), Expires: 03/24/2026[facility] HealthcareComment on above:Expected: 03/24/2025 (Approximate), Expires: 03/24/2026Start: 03-24-2025 End: 10-73-6220Ilpcwmq encounter procedureNOMS CWM FMComment on above:Primary hypertension (Primary Dx); Class 1 obesity due to excess calories without serious comorbidity with body mass index (BMI) of 30.0 to 30.9 in adult; Mixed hyperlipidemia ; Prostate cancer screening; Participant in health and wellness planStart: 46-94-9464VI Prostate [facility] Centertart: 63-74-9772XC prostate wo/w conMR prostate wo/w [facility] Hospitaltart: 10-21-2024 End: 83-40-8035Fklhjew encounter yxiehkgyf35/15/2025 6:30 PM EST Office Visit [facility] [address] [place] [address] Darlyn Paul, [employer] [address] [place] [phone] Class 1 obesity due to excess calories without serious comorbidity with body mass index (BMI) of 30.0 to 30.9 in adult (Primary Dx)[facility]Comment [facility] above:Class 1 obesity due to excess calories without serious comorbidity with body mass index (BMI) of 30.0 to 30.9 in adult (Primary Dx) Start: 10-21-2024 End: 89-30-5983NK Scrotum and testicleUS scrotum Imaging High Priority Scrotal mass Expected: 10/21/2024 (Approximate), Expires: 10/21/2025[facility] Work Phone: Comment on above:Expected: 10/21/2024 (Approximate), Expires: 10/21/2025Start: 18-67-0667Bbzcwrdxk for malignant neoplasm of colon [facility] CenterStart: 09-23-2024 End: 29-90-0779Tzikmwf encounter yitsbshmx36/18/2024 8:40 AM EST Office [facility] [address] [place] [address] Darlyn Paul, [place] [address] [place] [address] Primary hypertension (CMS/HCC) (Primary Dx); Mixed hyperlipidemia (CMS/HCC); Class 1 obesity due to excess calories without serious comorbidity with body mass index (BMI) of 30.0 to 30.9 in adultNOOLYMPIA MED[facility] Comment on above:Primary hypertension (CMS/HCC) (Primary Dx); Mixed hyperlipidemia (CMS/HCC); Class 1 obesity due to excess calories without serious comorbidity with body mass index (BMI) of 30.0 to 30.9 in adultStart: 07-07-2024 End: 15-55-1604Dejgdno encounter fyliggjte59/01/2024 8:40 AM EDT Office Visit [facility] [address] [place] [phone] Darlyn Paul, [employer] [address] [place] [phone] [facility] FMStart: 72-07-9492Yzufumwrj for malignant neoplasm of colonN[facility]S Healthcare Payers DatePayer CategoryPayerPolicy [id number] [facility] Member Subscriber Plan / Payer (Effective 2022-Present) Name: Jen Lopez Relation to Subscriber: Self Name: Jen Lopez PayerID: Not on file Type: Not on file Address: [facility] [address] [place] [id number] [id number] [id number] 2.840.1.006267.3.57[id number] 2.840.1.986563.3.57[id number] 2.840.1.662818.3.57[id number] 2.840.1.128460.3.57[id number] 2.840.1.437203.3.57[id number] 2..840.1.184703.3.57[id number] 2..840.1.936762.3.579.2.499[id number] / [id number] 2..840.1.494070.3.579.2.531 Social History DateTypeDetailFacilityStart: 01-02-2024 End: 31-09-3692Tpblrfv smoking status NHISEx-smokerNOMS Healthcare End: 28-35-4139Szgzuwz of tobacco useCurrent smokerNOMS Healthcare End: 45-17-6510Tbovnrx of tobacco useCigarette SmokerNOMS HealthcareStart: 64-20-7546Wzoprhl use and exposureSmokeless tobacco non-userNOMS Healthcare Start: 01-02-2024 End: 71-66-1717Nvmdifekc beverage intakeEx-drinker (finding)[facility] Start: 01-02-2024 End: 70-88-4162Fpumgbd of Social functionNOMS HealthcareStart: 01-02-2024 End: 77-96-1870Mkojasp use panelNOMS HealthcareStart: 53-95-4642Ayzkakk Comment caffine: coffee 1 dailyNOMS HealthcareStart: 66-16-2227Cyd assigned at birthNot on fileNOMS HealthcareHow often do you need to have someone help you when you read instructions, pamphlets, or other written material from your doctor or pharmacy [SILS]NeverNOMS HealthcareDo you belong to any clubs or organizations such as restorationism groups, unions, fraternal or athletic groups, or school groups? YesNOMS HealthcareAre you now , , , , never or living with a partner?MarriedNOMS HealthcareHow often to you have a drink containing alcohol?Monthly or lessNOMS HealthcareHow often do you have 6 or more drinks on 1 occasion?NeverNOMS HealthcareDo you feel stress - tense, restless, nervous, or anxious, or unable to sleep at night because yourmind is troubled all the time - these days [OSQ]Not at allNOMS Healthcare(I/We) worried whether (my/our) food would run out before (I/we) got money to buy more.Never trueNOIN HealthcareIn the past 12 months, was there a time when you were not able to pay the mortgage or rent on time?NoNOMS HealthcareSexual Orientation [facility] Start: 69-85-1365KqfGddf (finding)[facility] InstituteTobacco smoking status NHISUnknown if ever smokedSalem City Hospital Work Phone: Start: 42-78-6989Wgw Assigned [facility] Clinical Notes 09-23-2024 to 03-24-2025 Note Date & KlemIxrsLphcdggp83-76-1088 History of Present illness Narrative* Darlyn Paul NP - 03/24/2025 9:28 AM EDTAssociated Problem(s): Colon cancer screening Colon cancer screening options were discussed with patient, as well as why colon cancer screening is indicated. Options are Colonoscopy: direct visualization, every 10 years (unless indicated more frequently), risks and benefits were discussed Cologuard: every 3 years, risks and benefits were discussed , contraindications were discussed (family hx of colon cancer, colon polyps) Patient has elected to: cologuard * Darlyn Paul NP - 03/24/2025 9:28 AM EDTAssociated Problem(s): Adult wellness visit Reviewed Ht/Wt/BMI Recommend eye exam yearly Recommend dental exams twice a year Balance work/leisure activities Exercises is recommended most days of the week (appropriate as chronic conditions allow) Follow up yearly and prn * Darlyn Paul, [employer] - 03/24/2025 9:00 AM EDT Images from the original note were not [...] Pertinent negatives include no headaches, orthopnea, peripheral edemaor PND. There are no associated agents to hypertension. Risk factors for coronary artery disease include male gender and obesity. Past treatments include RONY inhibitors. The current treatment provides significant improvement. There are no compliance problems. There is no history of CAD/[place], heart failure or PVD. SUBJECTIVE: MEDICATIONS: Current [...] conditions allow) Follow up yearly and prn * Darlyn Paul NP - 03/24/2025 5:48 AM EDTAssociated Problem(s): Participant in health and wellness plan Labs ordered * Darlyn Paul NP - 03/24/2025 5:46 AM EDTAssociated Problem(s): Mixed hyperlipidemia Current medication crestor Check labs yearly and prn dose changes * Darlyn Paul NP - 03/24/2025 5:46 AM EDTAssociated Problem(s): Class 1 obesity due to excess calories without serious comorbidity in adult Discussed with patient their BMI (actual, verses recommended). We have also discussed lifestyle modifications: attempts to perform physical activity as chronic conditions allow, also to monitor dietary intake: increasing protein/fruits/veggies and lowering carb intake (unless contraindicated). Limit sodas, juices, and sugary drinks. * Darlyn Paul NP - 03/24/2025 5:46 AM EDTAssociated Problem(s): Primary hypertension Please check blood pressure daily and record DASH diet Limit caffeine Take medication as directed Contact office if chest pain, pressure, dizziness, shortness of breath, swelling legs Recommend slow position changes Current med: lisinopril documented in this [facility]06-18-2025 Instructions* Patient Instructions* Darlyn Paul NP - 03/24/2025 9:00 AM EDT Fasting labs Cologuard testing documented in this [facility]04-07-2025 NotePatient Education Urology Testicular Self-Exam A self-examination of [...] such as swelling or changes in size orshape. 3. Roll each testicle between your thumb [...] provider. Document Revised: 07/08/2023 Document Reviewed: 07/08/2023 [facility] Patient Education ? 2023 [facility] Spermatocele A spermatocele is a fluid-filled sac (cyst) inside the sac that holds the testicles (scrotum). Thistype of cyst often forms in the epididymis. [...] provider. Document Revised: 05/14/2022 Document Reviewed: 05/14/2022 [employer] Patient Education ? 2023 [facility] 10-21-2024 History of Present illness Narrative* Darlyn Paul, [employer] - 10/21/2024 7:09 PM ESTAssociated Problem(s): Scrotal mass Differentials: hernia, varicocele, hydrocele, or testicular mass Check US scrotom and send to urology pending results * YOGESH GRAMAJO - 10/21/2024 6:30 PM EST Pt noticed another protrusion in his lower abd/groin area about 2 weeks ago and is concerned it could be another hernia * Darlyn Paul NP - 10/21/2024 6:30 PM EST Images from the original note were not included. Jen Lopez is a 53 y.o. male presents with chief complaint of Hypertension HPI: Hx of right inguinal hernia as well as umbilical hernia: had for years no pain no NV or constipation About 2 weeks ago noted a mass/bulge in left scrotal region. No pain, did report have a harsh coughso not sure if something happened then or not. No constipation, occ difficulty emptying bladder allthe way, no dysuria, no bloody stools or [...] urology pending results Relevant Orders US scrotum * Darlyn Paul NP - 10/21/2024 7:11 AM ESTAssociated Problem(s): Class 1 obesity due to excess [...] options for weight loss. documented in this [facility]01-15-2025 Instructions* Patient Instructions* Darlyn Paul NP - 10/21/2024 6:30 PM EST Get US done at [facility], they should call you Pending results will send to urology documented in this [facility]12-18-2024 History of Present illness Narrative* Darlyn Paul NP - 09/23/2024 8:40 AM EST Images from the original note were not included. Jen Lopez is a 53 y.o. male presents with chief complaint of Hypertension HPI: Hypertension This is a chronic problem. The current episode started more than 1 year ago. The problem is unchanged. The problem is controlled. Pertinent negatives include no blurred vision, chest pain, neck pain,orthopnea, peripheral edema or shortness of breath. There are no associated agents to hypertension.Risk factors for coronary artery disease include obesity [...] loss. Has gained 9 pounds since 12/2023 * Darlyn Paul NP - 09/23/2024 6:35 AM ESTAssociated Problem(s): Class 1 obesity due to excess [...] loss. Has gained 9 pounds since 12/2023 * Darlyn Paul NP - 09/23/2024 6:34 AM ESTAssociated Problem(s): Mixed hyperlipidemia (CMS/HCC) Current medication crestor Check labs yearly and prn dose changes * Darlyn Paul NP - 09/23/2024 6:33 AM ESTAssociated Problem(s): Primary hypertension (CMS/HCC) Please check blood pressure daily and record DASH diet Limit caffeine Take medication as directed Contact office if chest pain, pressure, dizziness, shortness of breath, swelling legs Recommend slow position changes Current med: lisinopril [facility] [id number] Instructions* Patient Instructions* Darlyn Paul NP - 09/23/2024 8:40 AM EST No changes in med/doses Recommend focusing on some life changes for weight loss: possibly 30 minutes exercise most days of week, try to cut back on carbs and portion sizes, documented in this encounterNOIN HealthcareEvaluation + Plan note Future Appointments Appointment Date:01/17/2026 09:45:00 AM Scheduled Provider:Jayden BECK MD Location:[facility] Appointment Type:URO Office Visit [facility] Evaluation note* Diagnosis Mixed hyperlipidemia (CMS/HCC) Mixed hyperlipidemia Primary hypertension (CMS/HCC) Unspecified essential hypertension documented in this encounter [facility]* Diagnosis Primary hypertension (CMS/HCC)- Primary [...] 30.9 in adult documented in this encounter [facility]* Diagnosis Primary hypertension (CMS/HCC)- Primary [...] 30.9 in adult documented in this encounter [facility] HealthcareEvaluation note* Diagnosis Primary hypertension (CMS/HCC)- Primary [...] male genital organs documented in this encounter [facility]* Diagnosis Primary hypertension (CMS/HCC)- Primary [...] (CMS/HCC) Mixed hyperlipidemia documented in this encounter [facility] HealthcareEvaluation noteNo assessment information availableSalem City [facility] Work Phone: Evaluation note* Diagnosis Primary [...] malignant neoplasms, colon documented in this encounter [facility] HealthcareHospital course Narrative No data available for this section [facility] Hospital Discharge instructions No data available for this section [facility] Progress note No data available for this section [facility] Summary Purpose Family History No Family History Records FoundNo Family History Records Found No data available for this section No Family History Records FoundNo Family History Records FoundNo Family History Records FoundNo Family History Records Found Advance Directives Advance Directive Response Recorded Date/ Time Advance [...] section and content) DATE CREATED AUTHOR 10/28/2020 [facility] DATE CREATED AUTHOR AUTHOR'S ORGANIZ ATION 11/13/2022 [facility] DATE CREATED AUTHOR AUTHOR'S ORGANIZ ATION 01/23/2025 [facility] DATE CREATED AUTHOR AUTHOR'S ORGANIZ ATION 03/27/2025 [facility] DATE CREATED AUTHOR AUTHOR'S ORGANIZ ATION 04/19/2025 [facility] Reason for Visit (unrecogniz ed section and content) ReasonCommentsMed RefillReasonCommentsHypertension Care Teams (unrecognized sec tion and content) Team MemberRelationshipSpecialtyStart DateEnd Date Thierno Del Toro MD [address] [place] [phone] PCP - GeneralFamily Medicine01/02/24 Darlyn Paul NP [address] [place] [address] Referring PhysicianNurse Practitioner04/19/23 Darlyn Paul NP [address] [place] [address] Nurse PractitionerFailly Medicine01/02/24Team MemberRelationshipSpecialtyStart DateEnd Date Thierno Del Toro MD [address] [place] [phone] PCP - GeneralFamily Medicine01/02/24 Darlyn Paul NP [address] [place] [address] PCP - [employer]06/07/24 Darlyn Paul NP [address] [place] [address] Referring PhysicianNurse Practitioner04/19/23 Darlyn Paul NP [address] [place] [address] [facility]01/02/24Team MemberRelationshipSpecialtyStart DateEnd Date Thierno Del Toro MD [address] [place] [address] PCP - [facility] Medicine01/02/24 Darlyn Paul NP [address] [place] [address] PCP - [employer]06/07/24 Darlyn Paul NP [address] [place] [address] Referring PhysicianNurse Practitioner04/19/23 Darlyn Paul NP [address] [place] [address] Nurse Pract[facility] Medicine01/02/24Team MemberRelationshipSpecialtyStart DateEnd Date Thierno Del Toro MD [address] [place] [address] PCP - [facility] Medicine01/02/24 Darlyn Paul NP [address] [place] [address] PCP - [employer]06/07/24 Darlyn Paul NP [address] [place] [address] Referring PhysicianNurse Practitioner04/19/23 Darlyn Paul NP [address] [place] [address] Nurse Pract[facility] Medicine01/02/24Team MemberRelationshipSpecialtyStart DateEnd Date Thierno Del Toro MD [address] [place] [address] PCP - [facility]Mer[facility]01/02/24 Darlyn Paul NP [address] [place] [address] PCP - [employer]06/07/24 Darlyn Paul NP [address] [place] [address] Referring PhysicianNurse Practitioner04/19/23 Darlyn Palu NP [address] [place] [address] Nurse Pract[facility] Medicine01/02/24Team MemberRelationshipSpecialtyStart DateEnd Date Thierno Del Toro MD [address] [place] [address] PCP - GeneralFailly Medicine01/02/24 Darlyn Paul NP [address] [place] [address] PCP - [employer]06/07/24 Darlyn Paul NP [address] [place] [address] Referring PhysicianNurse Practitioner04/19/23 Darlyn Paul NP [address] [place] [address] [facility]erP[facility]01/02/24Team MemberRelationshipSpecialtyStart DateEnd Date Thierno Del Toro MD [address] [place] [address] PCP - [facility] Medicine01/02/24 Darlyn Paul NP [address] [place] [address] PCP - [employer]06/07/24 Darlyn Paul NP [address] [place] [address] Referring PhysicianNurse Practitioner04/19/23 Darlyn Paul NP [address] [place] [address] Nurse Pract[facility]erW[facility] Medicine01/02/24 Team Status: Active Member Role Status Bret Paul Primary Care Provider Active Team Status: Inactive Member Role Status Dates Jayden Beck MD Attending Provider Active St art: March 15, 2025 End: March 15, 2025Darlyn Castellanoswiregrass [facility] Care ProviderActiveStart: March 15, 2025 End: March 15, 2025Team MemberRelationshipSpecialtyStart DateEnd Date Thierno Del Toro MD [address] [place] [address] PCP - Generalmi Medicine01/02/24 Darlyn Paul NP [address] [place] [address] Referring PhysicianNurse Practitioner04/19/23 Darlyn Paul NP [address] [place] [address] Nurse Pract[facility]erW[facility] Medicine01/02/24Team MemberRelationshipSpecialtyStart DateEnd Date Thierno Del Toro MD [address] [place] [address] PCP - GeneralFami Medicine01/02/24 Darlyn Paul NP [address] [place] [address] Referring PhysicianNurse Practitioner04/19/23 Darlyn Paul NP [address] [place] [address] Nurse Pract[facility]erW[facility] Medicine01/02/24Team MemberRelationshipSpecialtyStart DateEnd Date Thierno Del Toro MD [address] [place] [address] PCP - GeneralFamily Medicine01/02/24 Darlyn Paul NP [address] [place] [address] Referring PhysicianNurse Practitioner04/19/23 Darlyn Paul NP [address] [place] [address] Nurse PractitionerFaworcester county hospital Medicine01/02/24 Goals (unrecognized section and content) Goals may [...] BE BASED ON THE PRIMARY CLINICAL RECORDS. [employer] [facility]. provides no warranty or guarantee of the accuracy or completeness of information in this document.
== END 2025-07-31 09:51 | disposition home or self-care (01) ==
PROVIDERS: PCP Nurse Practitioner; Visit Provider Nurse Practitioner
DX: R73.09 Other abnormal glucose (principal)
CPT/HCPCS: 36415; 83036